=== PATIENT | female | born 1945 | race Caucasian/White ===

== ENCOUNTER 2024-04-17 17:25 | Inpatient (IN) | payer MEDICARE, SELFPAY ==
[2024-04-17] VITALS (14 sets, daily range): BP systolic 130–160; BP diastolic 67–93; PULSE 69–101; RESP 16–26; TEMP 36.6–36.9; O2SAT 92–99; BMI 34.2; BMI 33.4
--- NOTE | 2024-04-17 17:35 | EDS_ITS ---
HPI History of Present Illness Chief Complaint: Shortness of Breath PFSH PFSH Medical History Cancer Smoker COPD (chronic obstructive pulmonary disease) Allergy/AdvReac Type Severity Reaction Status Date / Time Sulfa (Sulfonamide Allergy Unknown PT UNSURE Verified 04/17/24 17:34 Antibiotics) OF REACTION varenicline (From Chantix) AdvReac Severe SUICIDAL Verified 04/17/24 17:35 IDEATION Social History Smoking Status: Current every day smoker tobacco type: cigarettes EXAM Physical Exam Const Vital Signs: 04/17/24 17:25 04/17/24 17:29 04/17/24 17:32 Temperature 98.5 F 98.5 F Temperature Source Oral Oral Pulse Rate 101 H 98 Respiratory Rate 26 H 22 H Respiratory Effort Short of Breath Respiratory Pattern Tachypnea Blood Pressure 145/93 H 144/93 H Blood Pressure Mean 110 110 Pulse Ox 98 97 Oxygen Delivery Method Nasal Cannula Nasal Cannula Nasal Cannula Oxygen Flow Rate (L/min) 6 2 2 04/17/24 17:55 04/17/24 18:01 04/17/24 18:29 Temperature 98 F Temperature Source Oral Pulse Rate 89 84 Respiratory Rate 16 23 H Respiratory Effort Respiratory Pattern Normal Blood Pressure 130/77 H Blood Pressure Mean 94 Pulse Ox 95 Oxygen Delivery Method Nasal Cannula Nasal Cannula Oxygen Flow Rate (L/min) 2 04/17/24 18:34 04/17/24 18:49 04/17/24 19:00 Temperature Temperature Source Pulse Rate 85 92 85 Respiratory Rate 25 H 17 26 H Respiratory Effort Respiratory Pattern Blood Pressure 130/77 H Blood Pressure Mean 88 Pulse Ox 92 94 94 Oxygen Delivery Method Oxygen Flow Rate (L/min) 04/17/24 20:00 04/17/24 21:00 04/17/24 22:00 Temperature Temperature Source Pulse Rate 87 87 86 Respiratory Rate 25 H 20 H 22 H Respiratory Effort Respiratory Pattern Blood Pressure 155/83 H 160/86 H 160/86 H Blood Pressure Mean 105 110 110 Pulse Ox 93 93 95 Oxygen Delivery Method Nasal Cannula Oxygen Flow Rate (L/min) 2 MDM MDM MDM Narrative Medical decision making narrative: HISTORY OF PRESENT ILLNESS: 78-year-old female presents concern for increased shortness of breath. Notes began 5 hours ago. Per this patient 70% percent on room air. They note the patient wears 4 L of oxygen at night. History of COPD, metastatic lung cancer. The patient further states she has had increasing shortness of breath today. Denies chest pain. Denies bleeding diathesis. Denies history of blood clots. She is not on chemotherapy REVIEW OF SYSTEMS: Pertinent positives: Shortness of breath Pertinent negatives: Chest pain PHYSICAL EXAM: Nursing triage notes reviewed, Vital signs reviewed Constitutional: please see mdm HENT: MMM Eyes: Pupils equal round and reactive to light, Extraocular muscles intact Neck: No stridor, no JVD, full neck ROM Lungs: No focal lung findings. No increased work of breathing, no conversational dyspnea, no accessory muscle use, no nasal flaring. No respiratory distress noted Heart: Regular rate and rhythm, No murmurs, No rubs and No gallops, 2+ distal pulses (radial, femoral, posterior tibial) in all extremities Abdomen: Soft, there is no tenderness, rigidity, rebound or guarding, no obvious peritoneal signs, no palpable pulsatile abdominal masses, no auscultated abdominal bruit : No CVAT Extremities: No edema Neuro: No new focal neurological deficits, cranial nerves II through XII intact, 5/5 strength in all present extremities. Intact sensation to light touch in all present extremities, 2+ reflexes bilateral patella tendons. Skin: No rash or lesions noted MEDICAL DECISION MAKING: Chief Complaint: Shortness of breath External records reviewed: Reviewed prior cardiovascular testing Factors affecting care: As per HPI Social determinants of health: none History obtained from others: Family Consults: Internal medicine (Dr. Carlisle) [facility] Narrative: The patient was initially hypoxic cardiovascular here in the ED saturating at 97% on 2 L by nasal cannula, tachypneic to 22 otherwise afebrile with a normal heart rate. Exam overall unremarkable patient saturating well on 2 L nasal cannula. I considered the following differential diagnosis: Pneumonia, COVID, flu, CHF ALL IMAGES (IF OBTAINED) HAVE BEEN PERSONALLY REVIEWED AND INTERPRETED BY MYSELF. EKG with normal sinus rhythm rate of 95, left ax deviation, normal intervals CBC with mild leukocytosis suggestive of systemic inflammation, no anemia or thrombocytopenia BMP without evidence of significant electrolyte abnormalities, no anion gap, no acute kidney injury. Initial troponin indeterminate will send repeat testing Second troponin stable will send third COVID flu RSV negative CT of the chest shows no evidence of PE or PNA but shows known pulmonary nodule History and clinical exam most consistent with COPD exacerbation. While attempting to ambulate the patient became very tachypneic and hypoxic 87% despite being on home oxygen. The synthesis of the patient's history, physical exam, labs, and images suggest likely COPD exacerbation. Discussed with patient, family and hospitalist. They agree the patient is appropriate for admission for COPD exacerbation. The patient and/or family, caregivers express understanding. The patient and/or family, caregivers agrees with the plan. Shared decision making: I will have a discussion with the patient and or visitors regarding risk/benefits of further testing or admission. They will be made aware of of the risk/benefits inherent in this decision they will be given the opportunity to voice understanding. Total critical care time today provided was at least 0 minutes. This excludes separately billable procedures. Critical care time (if documented) is secondary to the patient having high probability of clinically significant/life threatening deterioration in the patient's condition which required my urgent intervention. Impression: 1. Dyspnea 2. Lung nodule 3. COPD exacerbation 4. Hypoxia Dispo: Admit This note was generated with [employer] dictation software. It may contain incorrect words, spelling, and punctuation that were not noted in review of the chart prior to signing. Lab Data Labs: Laboratory Results - last 24 hr 04/17/24 04/17/24 18:14 20:56 WBC 11.3 H RBC 4.45 Hgb 13.8 Hct 41.3 MCV 92.8 MCH 31.0 MCHC 33.4 RDW Std Deviation 44.5 H RDW Coeff of Ayad 13.1 Plt Count 279 MPV 9.8 Immature Gran % (Auto) 0.900 Neut % (Auto) 80.4 H Lymph % (Auto) 11.5 L Haines % (Auto) 6.3 Eos % (Auto) 0.5 Baso % (Auto) 0.4 Absolute Neuts (auto) 9.0 H Absolute Lymphs (auto) 1.29 Nucleated RBC % 0 Sodium 136 Potassium 4.8 Chloride 98 Carbon Dioxide 25.5 Anion Gap 12 BUN 10 Creatinine 0.94 Estim Creat Clear Calc 52.85 Est GFR (MDRD) Non-Af 62 BUN/Creatinine Ratio 10.4 Glucose 107 H Calcium 8.9 Troponin T High Sens 37 H Troponin T Hi Sens 2 Hr 37 H Radiography Diagnostic Testing: Clinical Impression(s) from Imaging Studies Chest CTA 04/17/24 19:10 IMPRESSION: 1. No evidence of pulmonary embolism. 2. 25 mm right upper lobe pulmonary nodule, concerning for primary lung malignancy. 3. Severe upper lobe predominant emphysema. 4. Multiple enlarged predominantly right-sided hilar and mediastinal lymph nodes, concerning for metastasis. 5. Hepatic cirrhosis without visualized focal lesion. Recommend PET-CT or tissue sampling to evaluate the right upper lobe pulmonary nodule. One or more dose reduction techniques were used (e.g., Automated exposure control, adjustment of the mA and/or kV according to patient size, use of iterative reconstruction technique). [facility] Discharge Plan Triage Chief Complaint: Shortness of Breath ED Provider: Сергей Evans Dx/Rx/DC Orders Primary Care Provider: Care Physician,No Primary Referrals: NOT,DEFINED [Non-Staff] - Print Language: Bruneian
--- NOTE | 2024-04-17 17:55 | EKG12_ITS ---
Test Reason : SOB Blood Pressure : */* mmHG Vent. Rate : 95 BPM Atrial Rate : 95 BPM P-R Int : 176 ms QRS Dur : 68 ms QT Int : 350 ms P-R-T Axes : 63 -19 56 degrees QTcB Int : 439 ms Normal sinus rhythm Possible Inferior infarct , age undetermined Abnormal ECG Confirmed by SHANTELLE PAREDES, GALILEO ([id number]), manuscript editor ADITYA SOLOMON ([id number]) on 04/21/2024 10:49:21 AM Referred By: Confirmed By: GALILEO PEPPER MD
[2024-04-17] MEDS: Ipratropium/Albuterol Sulfate 3 ML AMPUL.NEB INHALATION (18:01)
[2024-04-17] MEDS: MethylPREDNISolone 125 MG/2 ML Vial IV (18:19)
[2024-04-17 18:28] LABS: Absolute Lymphocyte Count 1.29 X10^3/uL (0.83-4.51); Basophil# 0.05 X10^3/uL; Basophil% 0.4 % (0-1); Eosinophil# 0.06 X10^3/uL; Eosinophils% 0.5 % (0-5); Hematocrit 41.3 % (37-47); Hemoglobin 13.8 g/dL (12.0-15.0); Lymphocyte # 1.29 X10^3/ul (0.83-4.51); Lymphocyte % 11.5 % (19-41); Mean Corp Hgb Conc 33.4 g/dL (32-36); Mean Corpuscular Volume 92.8 fL (81-99); Mean Platelet Vol. 9.8 fl (6.2-12.0); Monocyte# 0.71 X10^3/uL; Monocyte% 6.3 % (0-10); NRBC Flagged by Analyzer 0 % (0-5); Neutrophil # 9.04 X10^3/uL (2.7-7.7); Neutrophil % 80.4 % (47-70); Platelet Count 279 K/mm3 (150-450); RBC Distribution Width CV 13.1 % (11.6-14.6); RBC Distribution Width SD 44.5 fl (35.1-43.9); Red Blood Count 4.45 M/mm3 (4.2-5.4); White Blood Count 11.3 K/mm3 (4.4-11.0)
--- NOTE | 2024-04-17 18:59 | ED.RN ---
pt's colostomy appliance was leaking all around the device. this rn and another rn clean patient up and remove old appliance. new appliance applied with hospital supplied ostomy bags and wafers. pt tolerated well.
[2024-04-17 19:00] LABS: Anion Gap 12 (5-15); BUN 10 mg/dL (4-19); BUN/Creat Ratio 10.4 RATIO (10-20); Calcium,Total 8.9 mg/dL (7.6-11.0); Carbon Dioxide 25.5 mmol/L (21.0-32.0); Chloride 98 mmol/L (98-108); Creatinine, Serum 0.94 mg/dL (0.70-1.20); EST Glomerular Filtration Rate 62 (>60); Estimated Creatinine Clearance 52.85 ml/min (50-250); Glucose 107 mg/dL (70-99); Potassium 4.8 mmol/L (3.3-5.1); Sodium Level 136 mmol/L (133-145)
--- NOTE | 2024-04-17 19:10 | CT_ITS ---
PROCEDURE: CTA CHEST W/WO CONTRAST REASON FOR EXAM: SOB, HX OF CANCER R/O PE TECHNIQUE: CTA imaging of the chest with intravenous contrast. 3D reconstructions. CONTRAST: COMPARISON: None. FINDINGS: Hardware: None. Lymph nodes: Multiple enlarged hilar and mediastinal lymph nodes. For example 15 mm right upper paratracheal node (series 3, image 179); 24 mm right lower paratracheal node and 32 mm right hilar node (image 131). Multiple other mildly enlarged lymph nodes are noted. Heart: Normal heart size. No pericardial effusion. Mild atherosclerotic calcification of the coronary arteries. RV/LV Diameter Ratio: N/A Thoracic Aorta: No thoracic aortic aneurysm or dissection. Mild atherosclerotic calcification of the thoracic aorta. Pulmonary Vessels: No evidence of acute pulmonary emboli through the major subsegmental branches. Most Proximal Level of Embolus (if embolus present): N/A Lungs and Airways: Central airways are patent without endobronchial lesions. Moderate upper lobe predominant centrilobular emphysema. 25 mm right upper lobe pulmonary nodule (series 2, image 145). No pneumothorax. No pleural effusion. Pleura: No pleural effusion. No pneumothorax. Upper Abdomen: Cirrhotic hepatic morphology. Moderate pneumobilia. Bones: Bone windows are unremarkable. Mild degenerative change of the thoracic spine. CT/CTA Chest W/WO Contrast IMPRESSION: 1. No evidence of pulmonary embolism. 2. 25 mm right upper lobe pulmonary nodule, concerning for primary lung maligna ncy. 3. Severe upper lobe predominant emphysema. 4. Multiple enlarged predominantly right-sided hilar and mediastinal lymph node s, concerning for metastasis. 5. Hepatic cirrhosis without visualized focal lesion. Recommend PET-CT or tissue sampling to evaluate the right upper lobe pulmonary nodule. One or more dose reduction techniques were used (e.g., Automated exposure contr ol, adjustment of the mA and/or kV according to patient size, use of iterative reconstruction technique). Reading Location: [facility]
[2024-04-17 19:16] LABS: Troponin T High Sensitivity 37 ng/L (<=14)
--- NOTE | 2024-04-17 20:55 | CM.ED ---
Social Work Reason for visit: No PCP SW introduced self and reason for visit. Patient stated that she does have a primary DEDENTER that she routinely sees, no resources necessary. No further needs identified. Rosalie Neal, HEARING AID ASSEMBLY SUPERVISOR, E COMMERCE DIRECTOR
[2024-04-17 21:35] LABS: Troponin T High Sens 2 HR 37 ng/L (<=14)
[2024-04-17] MEDS: HYDROcodone Bitartrate/Apap 5/325 Tablet PO (21:46)
[2024-04-17] MEDS: Ondansetron 4 MG/2 ML Vial IV (21:46)
--- NOTE | 2024-04-17 22:24 | HP.PCM.HOS_ITS ---
[facility] - General General Date of Admission: 04/17/24 Date of Service: 04/17/24 Chief Complaint: SOB and Wheezing. HPI Narrative SIXTO SMITH, is a 78 F with a past medical history of tobacco abuse; with subsequent COPD, chronic hypoxic respiratory failure on 4L NC nocturnal, known history of lung cancer; followed by oncology but not on chemotherapy and obesity; with BMI of 34.2 this admission who presents to [facility] ER complaining of SOB and wheezing. Ms. Arriola reports her symptoms began approximately 5 hours prior to arrival with the abrupt-onset of shortness of breath at rest. Patient checked her pulse oximeter which revealed oxygen saturation of 70% on RA. Patient states her symptoms are ominously similar to her previous COPD exacerbations. She also admits to generalized weakness most pronounced in her legs with patient having ambulatory dysfunction so her daughter had her brought in for further evaluation and treatment. There is no report of fever, chills, nausea, vomiting, diarrhea, constipation, abdominal pain, chest pain or headache. In the ER she was diagnosed with AE COPD complicated by clinical evidence of [id number] Hypoxic Respiratory Insufficiency compounded by CTA of the chest done in the ER which revealed no evidence of pulmonary embolism but did show ~25 mm Right upper lobe pulmonary nodule concerning for primary lung malignancy with severe upper lobe predominant emphysema and multiple enlarged predominantly Right-sided hilar and mediastinal lymph nodes concerning for metastases in addition to hepatic cirrhosis without visualized focal lesion a long with Generalized Weakness and Ambulatory Dysfunction with patient's daughter reluctant to take her home and requesting ER physician seek admission for further treatment and evaluation. She was then admitted to the general medical floor for ongoing care for a stay that is expected to extend beyond 2 midnights. [facility] Medical History Cancer Smoker COPD (chronic obstructive pulmonary disease) Home Medications ?Medication ?Instructions ?Recorded ?Last Taken ?Type albuterol sulfate 90 mcg/actuation 2 puff inhalation Q 4H PRN PRN sob 04/17/24 Unknown History aerosol inhaler aspirin 81 mg tablet,delayed 81 mg PO DAILY 04/17/24 U nknown History release (Adult Aspirin Regimen) atorvastatin 10 mg tablet 10 mg PO DAILY 04/17/24 Unkn own History calcium phosphate,dibasic 77 1 tab PO DAILY 04/17/24 U nknown History mg-vitamin D3 400 unit tablet cetirizine 10 mg tablet 10 mg PO DAILY 04/17/24 Unkn own History cyanocobalamin (vitamin B-12) 500 500 mcg PO QDAY 04/05 04/29 Unknown History mcg tablet (B-12 DOTS) docusate sodium 100 mg capsule 100 mg PO BID 04/17/24 Unknown History (Colace) furosemide 20 mg tablet 20 mg PO DAILY 04/17/24 Unkn own History gabapentin 600 mg tablet 600 mg PO TID 04/17/24 Unkno wn History glycopyrrolate 9 mcg-formoterol 2 puff inhalation BID 04/17/24 Unknown History 4.8 mcg HFA aerosol inhaler (Bevespi Aerosphere) hydrocodone-acetaminophen 5-325mg 1 tab PO Q8H PRN PRN pain 04/17/24 Unknown History 5mg-325mg levothyroxine 125 mcg tablet 125 mcg PO DAILY 04/17/24 Unknown History pantoprazole 40 mg tablet,delayed 40 mg PO DAILY 04/17 Unknown History release paroxetine HCl 30 mg tablet 30 mg PO DAILY 04/17/24 Un known History polysaccharide iron complex 150 mg 150 mg PO DAILY Unknown History iron capsule (Ferrex) potassium chloride 20 mEq 20 meq PO BID 04/17/24 Unkno wn History tablet,extended release(part/cryst) sennosides 8.6 mg tablet (Natural 8.6 mg PO DAILY 04/05 04/29 Unknown History Senna Laxative) thiamine HCl (vitamin B1) 100 mg 100 mg PO DAILY 04/17 Unknown History tablet (Vitamin B-1) tizanidine 2 mg tablet 2 mg PO BID 04/17/24 Unknown History Allergy/AdvReac Type Severity Reaction Status Date / Time Sulfa (Sulfonamide Allergy Unknown PT UNSURE Verified 04/17/24 17:34 Antibiotics) OF REACTION varenicline (From Chantix) AdvReac Severe SUICIDAL Verified 04/17/24 17:35 IDEATION Social History Smoking Status: Current every day smoker tobacco type: cigarettes ROS ROS Narrative Review of Systems: Constitutional: Patient denies fever or chills. Eyes: Patient denies changes in vision or discharge from eyes. ENT: Patient denies runny nose, sore throat or ear pain. Resp: Patient admits to worsening SOB and wheezing as per HPI. CV: Patient denies chest pain, palpitations, heart racing or LE edema. GI: Patient denies abdominal pain, nausea, vomiting, diarrhea or constipation. : Patient denies dysuria, hematuria or urinary frequency. MSK: Patient admits to generalized weakness with difficult ambulation as per HPI. Skin: Patient denies rash, abscess, wounds or jaundice. Psych: Patient denies symptoms of uncontrolled depression or anxiety. Allergy: Patient denies lip swelling, tongue swelling or urticaria. Hematology: Patient denies easy bleeding or easy bruisability. Endocrinology: Patient denies polyuria, polydipsia, polyphagia or cold/heat intolerance. 14 point ROS otherwise negative except for positives noted above in HPI. Vital Signs Vital Signs Vital Signs: 04/17/24 17:25 04/17/24 17:29 04/17/24 17:32 Temperature 98.5 F 98.5 F Temperature Source Oral Oral Pulse Rate 101 H 98 Respiratory Rate 26 H 22 H Respiratory Effort Short of Breath Respiratory Pattern Tachypnea Blood Pressure 145/93 H 144/93 H Blood Pressure Mean 110 110 Pulse Ox 98 97 Oxygen Delivery Method Nasal Cannula Nasal Cannula Nasal Cannula Oxygen Flow Rate (L/min) 6 2 2 04/17/24 17:55 04/17/24 18:01 04/17/24 18:29 Temperature 98 F Temperature Source Oral Pulse Rate 89 84 Respiratory Rate 16 23 H Respiratory Effort Respiratory Pattern Normal Blood Pressure 130/77 H Blood Pressure Mean 94 Pulse Ox 95 Oxygen Delivery Method Nasal Cannula Nasal Cannula Oxygen Flow Rate (L/min) 2 04/17/24 18:34 04/17/24 18:49 04/17/24 19:00 Temperature Temperature Source Pulse Rate 85 92 85 Respiratory Rate 25 H 17 26 H Respiratory Effort Respiratory Pattern Blood Pressure 130/77 H Blood Pressure Mean 88 Pulse Ox 92 94 94 Oxygen Delivery Method Oxygen Flow Rate (L/min) 04/17/24 20:00 04/17/24 21:00 04/17/24 22:00 Temperature Temperature Source Pulse Rate 87 87 86 Respiratory Rate 25 H 20 H 22 H Respiratory Effort Respiratory Pattern Blood Pressure 155/83 H 160/86 H 160/86 H Blood Pressure Mean 105 110 110 Pulse Ox 93 93 95 Oxygen Delivery Method Nasal Cannula Oxygen Flow Rate (L/min) 2 Weight Weight: 199 lb 4.766 oz Body Mass Index (BMI) 34.2 Physical Exam Const alert, oriented x3 and average body habitus Constitutional Narrative: Mild distress noted with patient appearing chronically ill. General Appearance: cooperative HEENT normocephalic, head/scalp atraumatic, hearing grossly normal bilaterally and moist oral mucous membranes Eyes PERRL and EOMs intact bilaterally Neck no lymphadenopathy, supple and no JVD Resp Resp Narrative: Diminished throughout with scattered faint expiratory wheezes. Auscultation: wheezes Cardio regular rate and regular rhythm GI normal to inspection, nondistended, normoactive bowel sounds, soft to palpation, non-tender and non-distended Extremity normal to inspection, full ROM and no clubbing, cyanosis or edema Skin Skin Narrative: Patient has no evidence of rash, abscess, wounds or jaundice. Neuro oriented x3, CN's II-XII intact bilaterally, moves all extremities and no focal motor deficits Sensorium / Orientation: awake, alert, oriented to person, oriented to place and oriented to time Speech: speech normal Psych affect normal Results Medical Records Data Attestation: I reviewed the patient's medical records Lab / Micro Data Attestation: I reviewed the patient's lab results. 04/17/24 18:14 04/17/24 18:14 Labs: Laboratory Results - last 24 hr 04/17/24 18:14: WBC 11.3 H, RBC 4.45, Hgb 13.8, Hct 41.3, MCV 92.8, MCH 31.0, MCHC 33.4, RDW Std Deviation 44.5 H, RDW Coeff of Ayad 13.1, Plt Count 279, MPV 9.8, Immature Gran % (Auto) 0.900, Neut % (Auto) 80.4 H, Lymph % (Auto) 11.5 L, [place] % (Auto) 6.3, Eos % (Auto) 0.5, Baso % (Auto) 0.4, Absolute Neuts (auto) 9.0 H, Absolute Lymphs (auto) 1.29, Nucleated RBC % 0, Sodium 136, Potassium 4.8, Chloride 98, Carbon Dioxide 25.5, Anion Gap 12, BUN 10, Creatinine 0.94, Estim Creat Clear Calc 52.85, Est GFR (MDRD) Non-Af 62, BUN/Creatinine Ratio 10.4, Glucose 107 H, Calcium 8.9, Troponin T High Sens 37 H 04/17/24 20:56: Troponin T Hi Sens 2 Hr 37 H Micro: Microbiology 04/17/24 18:14 Mucosa - Nose SARS-CoV-2, Influenza & RSV (PCR) - Final Imaging Radiology Impression Chest CTA 04/17/24 19:10 IMPRESSION: 1. No evidence of pulmonary embolism. 2. 25 mm right upper lobe pulmonary nodule, concerning for primary lung malignancy. 3. Severe upper lobe predominant emphysema. 4. Multiple enlarged predominantly right-sided hilar and mediastinal lymph nodes, concerning for metastasis. 5. Hepatic cirrhosis without visualized focal lesion. Recommend PET-CT or tissue sampling to evaluate the right upper lobe pulmonary nodule. One or more dose reduction techniques were used (e.g., Automated exposure control, adjustment of the mA and/or kV according to patient size, use of iterative reconstruction technique). Reading [facility] Assessment & Plan Assessment/Plan (1) COPD with exacerbation: (2) Leukocytosis: QUALIFIERS: Leukocytosis type: unspecified Qualified Code(s): D 72.829 - Elevated white blood cell count, unspecified (3) Respiratory insufficiency: (4) D-dimer, elevated: (5) Tobacco abuse: (6) Lung cancer, primary, with metastasis from lung to other site: QUALIFIERS: Laterality: right Qualified Code(s): C34.91 - Malignant neoplasm of unspecified part of right bronchus or lung (7) Generalized weakness: (8) Ambulatory dysfunction: (9) Obesity (BMI 30.0-34.9): (10) Hepatic cirrhosis: QUALIFIERS: Ascites presence: without ascites Hepatic cirrhosis type: unspecified hepatic cirrhosis Qualified Code(s): K74.60 - Unspecified cirrhosis of liver PLAN: Plan 1. AE COPD with Leukocytosis of 11.3K present on admission - Admit to general medical floor. Continue IV Solu-Medrol and IV doxycycline begun in the ER. Resume as needed scheduled nebulizer treatments. 2. Vyjfa-us-Mcxoezs Respiratory insufficiency due to #1 with elevated D-dimer of 2.36 present on admission- Wean supplemental oxygen as tolerated. CTA of chest negative for PE but we will evaluate for DVT with lower extremity Doppler in a.m. due to increased risk of paraneoplastic VTE. 3. History of chronic tobacco abuse with subsequent Lung Cancer and CT evidence of Metastases followed by oncology but not yet started on chemotherapy complicating #1 & #2 - Noted. Patient likely will not tolerate chemotherapy very well given her advanced age and brittle condition. 4. Generalized Weakness with Ambulatory Dysfunction attributable to #1 - #3 - PT/OT and Case Management to consult and treat on rounds in the AM for further recommendations with help appreciated in advance. 5. Obesity; with BMI of 34.2 this admission adding to the burden of disease outlined from #1 - #4 - Weight loss will be recommended. Check TSH. This complicates her case and may hamper recovery. 6. CT evidence this admission for Hepatic Cirrhosis likely due to SCHULZ with no report history of alcohol abuse - Noted. 7. DVT/GI prophylaxis - Lovenox 40 mg sq daily plus SCD's. Pantoprazole 40 mg PO daily. Total time: Approximately (but not less than) 75 minutes. Charges/Coding Visit Charges Inpatient E&M: 50835 Init Hosp L3
[2024-04-17] MEDS: Doxycycline 100 MG in 0.9% Normal Saline (250mL Bag) 250 ML 250 MG IV (23:16)
[2024-04-17 23:32] LABS: D-Dimer Quantitative (DVT/PE) 2.36 FEU/ug/m (0.27-0.49)
[2024-04-17 23:41] LABS: Troponin T High Sens 4 HR 38 ng/L (<=14)
[2024-04-18] VITALS (13 sets, daily range): BP systolic 140–155; BP diastolic 76–89; PULSE 64–89; RESP 20; TEMP 36–36.6; O2SAT 95–99; BMI 33.3
[2024-04-18 00:20] LABS: Magnesium 2.2 mg/dL (1.5-2.2)
[2024-04-18] MEDS: 0.9% Normal Saline (1000mL) 1,000 ML 70 ML IV (00:29)
[2024-04-18 00:57] LABS: Vitamin B12 1909 pg/mL (180-914)
--- NOTE | 2024-04-18 02:00 | VDLE_ITS ---
Reason For Study Reason For Study: elevated D-Dimer RIGHT LEFT GSV is normal. GSV is normal. CFV is compressible, spontaneous, phasic, competent CFV is compressible, spontaneous, phasic, competent, and demonstrates normal augmentation. and demonstrates normal augmentation. FV is compressible, spontaneous, phasic, competent FV is compressible, spontaneous, phasic, competent and demonstrates normal augmentation. and demonstrates normal augmentation. POP V is compressible, spontaneous, phasic, competent POP V is compressible, spontaneous, phasic, competent and demonstrates normal augmentation. and demonstrates normal augmentation. T/P Trunk is compressible. T/P Trunk is compressible. PTV is compressible. PTV is compressible. RT PerV is compressible. LT PerV is compressible. Procedure This is a venous duplex using B-mode, color flow and spectral Doppler. Exam performed portable in patient room. The study was technically difficult. Due to patient unable to tolerate probe pressure. A preliminary report was called and/or faxed to [place]. VL/Venous Duplex US - Chriss Extrem Interpretation Summary Deep veins of the lower extremities are bilaterally patent and compressible seg mentally. There is no evidence of deep vein thrombosis on either side. Valvular competence appears intact within the p roximal deep venous systems bilaterally. The great saphenous veins appear bilaterally patent and compressible segmentall y. Ordering Physician: Jairo Bai Referring Physician: JANIE PCP Performed By: Jazzy Sellers, NASRA, RVT
[2024-04-18 06:23] LABS: Absolute Lymphocyte Count 0.87 X10^3/uL (0.83-4.51); Absolute Neutrophil Count 8.6 X10^3/uL (2.0-7.7); Basophil# 0.02 X10^3/uL; Basophil% 0.2 % (0-1); Eosinophil# 0.03 X10^3/uL; Eosinophils% 0.3 % (0-5); Hemoglobin 13.3 g/dL (12.0-15.0); Lymphocyte # 0.87 X10^3/ul (0.83-4.51); Lymphocyte % 8.6 % (19-41); Mean Corp Hgb Conc 32.4 g/dL (32-36); Mean Corpuscular Volume 95.6 fL (81-99); Mean Platelet Vol. 10.9 fl (6.2-12.0); NRBC Flagged by Analyzer 0 % (0-5); Neutrophil # 8.59 X10^3/uL (2.7-7.7); Neutrophil % 85.1 % (47-70); POSITIVE COUNT YES; RBC Distribution Width CV 13.1 % (11.6-14.6); RBC Distribution Width SD 45.8 fl (35.1-43.9); Red Blood Count 4.29 M/mm3 (4.2-5.4); White Blood Count 10.1 K/mm3 (4.4-11.0)
[2024-04-18] MEDS: Ondansetron 4 MG/2 ML Vial IV ×2 (06:40→14:19)
[2024-04-18 06:47] LABS: Bacteria 0 SEEN /hpf (None Seen); Mucous, Urine 0 SEEN /hpf (<or=2+)
[2024-04-18 06:58] LABS: Color, Urine Yellow (Yellow); Glucose, Dipstick Normal (Normal); Ketone-Dipstick Negative (Negative); Leukocyte Esterase-Dipstick Negative /ul (Negative); Nitrite-Dipstick Negative (Negative); Occult Blood-Urine Negative /ul (Negative); Protein-Dipstick 30 mg/dl (Negative); Specific Gravity, Urine 1.015 (1.002-1.030); Urine Bilirubin Dipstick Negative (Negative); Urine Clarity Clear (Clear); Urine Urobilinogen Normal (Normal)
[2024-04-18 07:16] LABS: Differential Indicated SCAN CRITERIA MET
[2024-04-18 07:31] LABS: Red Blood Cells-Urine 0 SEEN /hpf (0-5); White Blood Cells 0-5 SEEN /hpf (0-5)
[2024-04-18 07:32] LABS: Squamous Epithelial Cells - UA 0-5 SEEN /hpf (5-10)
[2024-04-18 07:39] LABS: Differential Comment SCANNED; Platelet Estimate ADEQUATE (ADEQ)
[2024-04-18 08:41] LABS: Phosphorus 4.3 mg/dL (2.7-4.5)
[2024-04-18 09:22] LABS: ALB/GLOB Ratio 1.3 RATIO (0.9-2.4); AST(SGOT) 115 U/L (<=31); Alanine Aminotransfer ALT/SGPT 112 U/L (<=34); Albumin, Serum 3.6 g/dL (3.4-4.8); Alkaline Phosphatase 153 U/L (35-104); Anion Gap 14 (5-15); BUN 14 mg/dL (4-19); BUN/Creat Ratio 14.9 RATIO (10-20); Calcium,Total 8.5 mg/dL (7.6-11.0); Carbon Dioxide 21.6 mmol/L (21.0-32.0); Chloride 99 mmol/L (98-108); Creatinine, Serum 0.91 mg/dL (0.70-1.20); EST Glomerular Filtration Rate 64 (>60); Estimated Creatinine Clearance 53.99 ml/min (50-250); Globulin 2.8 g/dL (2.2-4.2); Glucose 121 mg/dL (70-99); Potassium 5.1 mmol/L (3.3-5.1); Protein, Total 6.4 g/dL (5.9-8.4); Sodium Level 134 mmol/L (133-145); Total Bilirubin 0.34 mg/dL (0.00-1.30)
[2024-04-18] MEDS: proCHLORPERazine 10 MG/2 ML Vial 5 MG IV ×2 (09:56→20:03)
[2024-04-18] MEDS: Doxycycline 100 MG in 0.9% Normal Saline (250mL Bag) 250 ML 250 MG IV ×2 (09:56→21:45)
[2024-04-18] MEDS: Enoxaparin 40 MG/0.4 ML Syringe SC (10:00)
[2024-04-18] MEDS: Pantoprazole Sodium 40 MG Tablet PO (10:00)
[2024-04-18] MEDS: MethylPREDNISolone 125 MG/2 ML Vial 60 MG IV ×2 (10:02→21:17)
[2024-04-18] MEDS: Nystatin Powder 15gm Bottle 1 APPLIC TOPICAL ×2 (10:04→21:13)
--- NOTE | 2024-04-18 10:22 | PN_ITS ---
Subjective Subjective Patient seen and examined. She said she felt her breathing was improving. She is on 2 L of oxygen. She admits to some wheezing and is also coughing. Review of symptoms otherwise negative. Patient continues to smoke and says she smokes about 1 pack daily. Objective Data Objective Data Vital Signs: Vital Signs Temp Pulse Resp BP Pulse Ox O2 Del Method O2 Flow Rate 97.5 F L 67 20 H 151/76 H 97 Nasal Cannula 2 04/18/24 08:27 04/18/24 08:27 04/18/24 08:27 04/18/24 08:27 04/18/24 08:27 04/18/24 09:03 04/18/24 09:03 Oxygen Flow Rate (L/min) 2 Oxygen Delivery Method Nasal Cannula Weight: 195 lb 1.745 oz Body Mass Index (BMI) 33.3 Intake & Output: Intake and Output for Last 24 Hours 04/16/24 04/17/24 04/18/24 23:59 23:59 23:59 Intake Total 260 / 260 Output Total 250 / 250 Balance Lab / Micro Data 04/18/24 05:29 04/18/24 05:29 Labs: Laboratory Results - last 24 hr 04/17/24 18:14: WBC 11.3 H, RBC 4.45, Hgb 13.8, Hct 41.3, MCV 92.8, MCH 31.0, MCHC 33.4, RDW Std Deviation 44.5 H, RDW Coeff of Ayad 13.1, Plt Count 279, MPV 9.8, Immature Gran % (Auto) 0.900, Neut % (Auto) 80.4 H, Lymph % (Auto) 11.5 L, [place] % (Auto) 6.3, Eos % (Auto) 0.5, Baso % (Auto) 0.4, Absolute Neuts (auto) 9.0 H, Absolute Lymphs (auto) 1.29, Nucleated RBC % 0, Sodium 136, Potassium 4.8, Chloride 98, Carbon Dioxide 25.5, Anion Gap 12, BUN 10, Creatinine 0.94, Estim Creat Clear Calc 52.85, Est GFR (MDRD) Non-Af 62, BUN/Creatinine Ratio 10.4, Glucose 107 H, Calcium 8.9, Troponin T High Sens 37 H 04/17/24 20:56: Troponin T Hi Sens 2 Hr 37 H 04/17/24 23:08: D-Dimer Quant (PE/DVT) 2.36 H*, Magnesium 2.2, Troponin T Hi Sens 4Hr 38 H, Vitamin B12 1909 H, Serum Folate 12.70, TSH 13.400 H 04/18/24 05:29: WBC 10.1, RBC 4.29, Hgb 13.3, Hct 41.0, MCV 95.6, MCH 31.0, MCHC 32.4, RDW Std Deviation 45.8 H, RDW Coeff of Ayad 13.1, Plt Count TNP, MPV 10.9, Immature Gran % (Auto) 0.800, Neut % (Auto) 85.1 H, Lymph % (Auto) 8.6 L, [place] % (Auto) 5.0, Eos % (Auto) 0.3, Baso % (Auto) 0.2, Absolute Neuts (auto) 8.6 H, Absolute Lymphs (auto) 0.87, Nucleated RBC % 0, Differential Comment SCANNED, Platelet Estimate ADEQUATE, Sodium 134, Potassium 5.1, Chloride 99, Carbon Dioxide 21.6, Anion Gap 14, BUN 14, Creatinine 0.91, Estim Creat Clear Calc 53.99, Est GFR (MDRD) Non-Af 64, BUN/Creatinine Ratio 14.9, Glucose 121 H, Calcium 8.5, Phosphorus 4.3, Total Bilirubin 0.34, AST 115 H, ALT 112 H, A lkaline Phosphatase 153 H, Total Protein 6.4, Albumin 3.6, Globulin 2.8, Albumin/Globulin Ratio 1.3 04/18/24 06:40: Urine Color Yellow, Urine Clarity Clear, Urine pH 6.0, Ur Specific [place] 1.015, Urine Protein 30 H, Urine Glucose (UA) Normal, Urine Ketones Negative, Urine Occult Blood Negative, Urine Nitrite Negative, Urine Bilirubin Negative, Urine Urobilinogen Normal, Ur Leukocyte Esterase Negative, Urine RBC 0 SEEN, Urine WBC 0-5 SEEN, Ur Squamous Epith Cells 0-5 SEEN, Urine Bacteria 0 SEEN, Urine Mucus 0 SEEN Micro: Microbiology 04/17/24 18:14 Mucosa - Nose SARS-CoV-2, Influenza & RSV (PCR) - Final Radiography Diagnostic Testing: Radiology Impression Chest CTA 04/17/24 19:10 IMPRESSION: 1. No evidence of pulmonary embolism. 2. 25 mm right upper lobe pulmonary nodule, concerning for primary lung malignancy. 3. Severe upper lobe predominant emphysema. 4. Multiple enlarged predominantly right-sided hilar and mediastinal lymph nodes, concerning for metastasis. 5. Hepatic cirrhosis without visualized focal lesion. Recommend PET-CT or tissue sampling to evaluate the right upper lobe pulmonary nodule. One or more dose reduction techniques were used (e.g., Automated exposure control, adjustment of the mA and/or kV according to patient size, use of iterative reconstruction technique). [facility] Physical Exam Const alert, oriented x3 and no apparent distress Constitutional Narrative: class II obesity General Appearance: cooperative HEENT normocephalic, head/scalp atraumatic, moist oral mucous membranes and oropharynx normal Eyes PERRL and EOMs intact bilaterally Neck no lymphadenopathy and supple Lymph Lymphatic: no lymphadenopathy noted and no lymphedema noted Resp Resp Narrative: diminished breath sounds bibasally, no wheezes or crackles. On 2L of oxygen by nasal canula Cardio regular rate, regular rhythm, S1 normal heart sound, S2 normal heart sound and no murmurs GI normal to inspection, nondistended, normoactive bowel sounds, soft to palpation, non-tender and non-distended Extremity normal capillary refill, no clubbing, cyanosis or edema and no calf tenderness General Extremity: no tenderness to palpation of joints or extremities Skin General Skin Exam: no breakdown Neuro CN's II-XII intact bilaterally, no focal motor deficits and no sensory deficits noted Motor Exam: strength 5/5 throughout and general weakness Psych thought process normal, cooperative and affect normal Appearance: appropriate Assessment & Plan Assessment/Plan (1) COPD with exacerbation: (2) Respiratory insufficiency: PLAN: Plan #HYpoxia due to acute exacerbation of COPD * Patient on 2 L of oxygen today. She usually wears 4 L at night at home. Was admitted with a complaint of shortness of breath of about 5 hours prior to admission. Saturating at 70% on room air at home. * CTA of the chest done in the ED showed 25 mm right upper lobe pulmonary nodule concerning for primary lung malignancy and severe upper lobe predominant emphysema and multiple enlarged predominantly right-sided hilar and mediastinal lymph nodes concerning for mets. Also showed evidence of hepatic cirrhosis. * Currently on IV Solu-Medrol. She continues to smoke and says she smokes about 1 pack daily. Patient counseled strongly to quit. * Breathing treatments with bronchodilators. Titrate oxygen to maintain saturation above 90%. * on IV doxycycline * #? bowel obstruction * Was informed by patient's nurse that patient's states he is concerned about bowel obstruction. Patient apparently started developing abdominal pain afterwards outpatient. She has not had any output in her colostomy bag also * Stat CT abdomen and pelvis with oral and IV contrast ordered showed no evidence of obstruction and showed constipation. CT abdomen and pelvis also showed large fatty liver with nodularity of hepatic surface nad ill defined hypodense lesion. * place on laxatives to help with constipation * hydrate gently with iVF * #Elevated D-dimer: D-dimer 2.[address] of the chest was however negative for any evidence of PE. #Debility and weakness: Also has ambulatory dysfunction. PT OT on board. Fall precautions. #History of lung cancer * CT chest as stated above showed 25mm right upper lobe pulmonary nodule and severe upper lobe emphysema * she has been diagnosed with lung cancer but is yet to start chemotherapy. * follow up with oncology on outpatient basis. * #Class II obesity: BMI is 33.5. Complicates acute care, expected recovery and prognosis #Liver cirrhosis: * as seen on CT chest. No history of alcohol abuse. * AST and ALT elevated at 115 and 112 respectively and ALP is also up at 153. * However, with her history of obesity, this may be due to SCHULZ. Will benefit from follow up with gastroenterology on outpatient basis. * CT of the abdomen showed large fatty liver with nodularity of hepatic surface and ill defined hypodense lesions, suggestive of cirrhosis, though metastasis cannot be excluded. Patient's daughter tells me they are aware of these findings already. To follow up with gastroenterology and oncology on outpatient basis. * #Hypothyroidism: * TSH is 13.4. Free T4 is also low at 0.5. * Patient on Synthroid 125 mcg daily. * Claims compliance. * Will increase dosing to 200 mcg daily. * Will benefit from follow-up with endocrinology on outpatient basis. * DVT prophylaxis: lovenox Charges/Coding Visit Charges Inpatient E&M: 35961 Subs Hosp L3
[2024-04-18 10:30] LABS: Free T3 0.9 pg/mL (2.18-3.98)
--- NOTE | 2024-04-18 11:03 | CASEMGMT ---
NEETU JORDAN Assessment: Face to Face with pt for initial transition planning/care coordination assessment. NEETU JORDAN introduced self and role at [facility], pt voices understanding and consents to assessment. Pt is A&O x4. Pt asks for dtr to answer questions as she and her father are in the room. Pt sitting up in bed with eyes closed, waiting for a CT scan. Care providers, pharmacy, and demographics verified/updated. Admitting Dx: AE COPD, resp insuff Strata Score: 2 PCP:Christine Figueredo Specialists:Yaakov Gillette, lily; Vern onc Preferred Pharmacy: [facility] Insurance: [facility] Prescription Benefit: yes LNOK: Amanda Andrade, dtr Living Arrangements: Pt lives with dtr in a ground level apt with no steps to enter. Pt dtr assists with bathing and dressing when she can. Pt is able to prepare simple meals. Dtr does laundry and gets groceries. Transportation: Pt does not drive. Pt dtr transports pt to medical appts. DME:Oxygen through [employer], portable concentrator in form, grab bars in bathroom, shower chair, walker HHC/SNF: Pt has had HHC in the past and been to a SNF in [place]. Pt dtr is a nurse who works nights. She and patient are interested in HHC for pt. They are very hesitant to discuss dc planning as pt is not ready for dc yet. They are agreeable to reviewing HHC list and are aware that should the dc plan change, we can change it without difficulty as course of hospitalization progresses. Pt dtr requesting private duty list. Pt dtr states that palliative care is coming out to the home next Sunday. Pt dtr states she can obtain a pox for pt. Pt and dtr state no further concerns/needs. CM to follow. Advised pt to ask CM if any further questions/concerns/needs arise, voices understanding. Pt Goal: Home with HHC Plan: Home with HHC pending course of hospitalization [place]DA CM Confirmed with [facility], they will see pt in home at 1pm on 04/23/24. Placed on dc instructions.
--- NOTE | 2024-04-18 11:42 | CASEMGMT ---
NEETU JORDAN into pt room, provided C list as well as private duty list. NEETU JORDAN to check back. Pt states she cannot look at this now. Family has left the room.
--- NOTE | 2024-04-18 13:05 | CT_ITS ---
EXAM: CT Abdomen and Pelvis With Intravenous Contrast CLINICAL INDICATION: BOWEL OBSTRUCTION, ABDOMINAL PAIN TECHNIQUE: Axial computed tomography images of the abdomen and pelvis with intravenous contrast. This CT exam was performed using one or more of the following dose reduction techniques: automated exposure control, adjustment of the mA and/or kV according to patient size, and/or use of iterative reconstruction technique. COMPARISON: No relevant prior studies available. FINDINGS: LUNG BASES: Unremarkable. No mass. No consolidation. ABDOMEN: LIVER: Large fatty liver with nodularity tissue hepatic surface and ill-defined hypodense lesions. Finding may suggest cirrhosis. Metastasis can not be excluded. GALLBLADDER AND BILE DUCTS: Central pneumobilia could be benign or secondary to infectious or inflammatory response. Clinical correlation is recommended. No calcified stones. No ductal dilation. PANCREAS: Unremarkable. No mass. No ductal dilation. SPLEEN: Unremarkable. No splenomegaly. ADRENALS: Unremarkable. No mass. KIDNEYS AND URETERS: Unremarkable. No solid mass. No hydronephrosis. STOMACH AND BOWEL: Constipation without bowel obstruction or pneumoperitoneum. Left lower abdomen ileostomy. No mucosal thickening. PELVIS: APPENDIX: No findings to suggest acute appendicitis. BLADDER: Unremarkable. No mass. REPRODUCTIVE: Unremarkable as visualized. ABDOMEN and PELVIS: INTRAPERITONEAL SPACE: See above. BONES/JOINTS: Grade 1 anterior spondylolisthesis of L4 over L5. Apparent lytic lesion at L5 vertebral body. Metastasis can not be excluded. No acute fracture. No dislocation. SOFT TISSUES: Unremarkable. VASCULATURE: Unremarkable. No abdominal aortic aneurysm. LYMPH NODES: Unremarkable. No enlarged lymph nodes. CT/Abdomen/Pelvis WITH Contrast IMPRESSION: 1. Large fatty liver with nodularity tissue hepatic surface and ill-defined hy podense lesions. Finding may suggest cirrhosis. Metastasis can not be excluded. 2. Constipation without bowel obstruction or pneumoperitoneum. 3. Grade 1 anterior spondylolisthesis of L4 over L5. Apparent lytic lesion at L5 vertebral body. Metastasis can not be excluded. 4. Central pneumobilia could be benign or secondary to infectious or inflammat ory response. Clinical correlation is recommended. Reading Location: [facility]
[2024-04-18] MEDS: 0.9% Saline Lock 10 ML Syringe IV ×3 (14:19→21:18)
[2024-04-18] MEDS: Lactobacillis Acidophilus 1 CAP PO ×2 (14:21→21:16)
[2024-04-18] MEDS: Gabapentin 600 MG Tablet PO ×2 (14:23→21:13)
[2024-04-18] MEDS: Docusate Sodium 100 MG Capsule PO (21:16)
[2024-04-18] MEDS: Atorvastatin Calcium 10 MG Tablet PO (21:16)
[2024-04-18] MEDS: Albuterol 2.5 MG/3 ML VIAL.NEB. INHALATION (21:33)
[2024-04-18] MEDS: tiZANidine HCl 2 MG Tablet PO (22:21)
[2024-04-19] VITALS (15 sets, daily range): BP systolic 119–151; BP diastolic 67–82; PULSE 58–81; RESP 20–24; TEMP 36.4–36.9; O2SAT 93–98; BMI 33.6
[2024-04-19] MEDS: Ondansetron 4 MG/2 ML Vial IV ×2 (04:33→17:26)
[2024-04-19] MEDS: 0.9% Saline Lock 10 ML Syringe IV ×5 (04:33→19:58)
[2024-04-19] MEDS: Albuterol 2.5 MG/3 ML VIAL.NEB. INHALATION ×3 (04:48→22:50)
[2024-04-19] MEDS: Gabapentin 600 MG Tablet PO ×3 (05:44→22:19)
[2024-04-19] MEDS: Levothyroxine 100 MCG Tablet 200 MCG PO (05:44)
[2024-04-19 07:17] LABS: Absolute Lymphocyte Count 0.94 X10^3/uL (0.83-4.51); Basophil# 0.01 X10^3/uL; Basophil% 0.1 % (0-1); Hematocrit 40.6 % (37-47); Hemoglobin 13.2 g/dL (12.0-15.0); Lymphocyte # 0.94 X10^3/ul (0.83-4.51); Mean Corp Hgb Conc 32.5 g/dL (32-36); Mean Corpuscular Hgb 31.1 pg (27.0-32.0); Mean Corpuscular Volume 95.5 fL (81-99); Mean Platelet Vol. 9.9 fl (6.2-12.0); Monocyte# 0.77 X10^3/uL; Monocyte% 6.5 % (0-10); NRBC Flagged by Analyzer 0 % (0-5); Neutrophil # 9.98 X10^3/uL (2.7-7.7); Neutrophil % 84.6 % (47-70); Platelet Count 264 K/mm3 (150-450); RBC Distribution Width CV 13.3 % (11.6-14.6); RBC Distribution Width SD 46.6 fl (35.1-43.9); Red Blood Count 4.25 M/mm3 (4.2-5.4); White Blood Count 11.8 K/mm3 (4.4-11.0)
[2024-04-19 08:41] LABS: Anion Gap 11 (5-15); BUN 21 mg/dL (4-19); BUN/Creat Ratio 22.9 RATIO (10-20); Calcium,Total 8.7 mg/dL (7.6-11.0); Carbon Dioxide 27.1 mmol/L (21.0-32.0); Chloride 99 mmol/L (98-108); Creatinine, Serum 0.91 mg/dL (0.70-1.20); EST Glomerular Filtration Rate 64 (>60); Estimated Creatinine Clearance 54.24 ml/min (50-250); Glucose 114 mg/dL (70-99); Potassium 4.8 mmol/L (3.3-5.1); Sodium Level 137 mmol/L (133-145)
[2024-04-19 09:20] LABS: AST(SGOT) 113 U/L (<=31); Alanine Aminotransfer ALT/SGPT 126 U/L (<=34); Albumin, Serum 3.8 g/dL (3.4-4.8); Alkaline Phosphatase 163 U/L (35-104); Bilirubin, Direct 0.26 mg/dL (0.00-0.30); Globulin 2.7 g/dL (2.2-4.2); Protein, Total 6.5 g/dL (5.9-8.4); Total Bilirubin 0.42 mg/dL (0.00-1.30)
[2024-04-19] MEDS: proCHLORPERazine 10 MG/2 ML Vial 5 MG IV ×2 (09:30→19:57)
[2024-04-19] MEDS: Aspirin E.C. 81 MG Tablet PO (09:41)
[2024-04-19] MEDS: Senna Tablet 1 TABLET PO (09:41)
[2024-04-19] MEDS: Pantoprazole Sodium 40 MG Tablet PO (09:41)
[2024-04-19] MEDS: Furosemide 20 MG Tablet PO (09:41)
[2024-04-19] MEDS: Potassium Chloride Oral Tablet 20 MEQ PO ×2 (09:41→17:21)
[2024-04-19] MEDS: Docusate Sodium 100 MG Capsule PO ×2 (09:41→22:16)
[2024-04-19] MEDS: tiZANidine HCl 2 MG Tablet PO ×2 (09:41→22:17)
[2024-04-19] MEDS: Loratadine 10 MG Tablet PO (09:41)
[2024-04-19] MEDS: Paroxetine 20 MG Tablet 30 MG PO (09:41)
[2024-04-19] MEDS: Enoxaparin 40 MG/0.4 ML Syringe SC (09:42)
[2024-04-19] MEDS: Iron Polysaccharide Complex 150 MG CAPSULE PO (09:42)
[2024-04-19] MEDS: MethylPREDNISolone 125 MG/2 ML Vial 60 MG IV ×2 (09:42→22:17)
[2024-04-19] MEDS: Mag Hydrox/Al Hydrox/Simeth 30 ML UDC PO (09:58)
[2024-04-19] MEDS: Doxycycline 100 MG in 0.9% Normal Saline (250mL Bag) 250 ML 250 MG IV ×2 (10:06→22:14)
[2024-04-19] MEDS: Nystatin Powder 15gm Bottle 1 APPLIC TOPICAL ×2 (10:06→22:16)
--- NOTE | 2024-04-19 11:21 | PN_ITS ---
Subjective Subjective Patient seen and examined. Patient says she felt uncomfortable due to nausea. She had not had any vomiting. She felt her breathing was improving. Her daughter was by her bedside. When asked about the Synthroid daughter said patient has been compliant with his Synthroid but she has not had follow-up with her PCP to check a TSH in about 6 months to a year. She does not see an caustic purification operator for her hypothyroidism. Review of systems otherwise negative. Objective Data Objective Data Vital Signs: Vital Signs Temp Pulse Resp BP Pulse Ox O2 Del Method O2 Flow Rate 97.9 F 65 22 H 142/81 H 95 Nasal Cannula 2 04/19/24 10:00 04/19/24 11:05 04/19/24 11:05 04/19/24 10:00 04/19/24 11:05 04/19/24 11:05 04/19/24 11:05 Oxygen Flow Rate (L/min) 2 Oxygen Delivery Method Nasal Cannula Weight: 196 lb 13.965 oz Body Mass Index (BMI) 33.6 Intake & Output: Intake and Output for Last 24 Hours 04/17/24 04/18/24 04/19/24 23:59 23:59 23:59 Intake Total 2330 / 2330 Output Total 850 / 850 Balance 1480 / 1480 Lab / Micro Data 04/19/24 06:28 04/19/24 06:28 Labs: Laboratory Results - last 24 hr 04/19/24 06:28: WBC 11.8 H, RBC 4.25, Hgb 13.2, Hct 40.6, MCV 95.5, MCH 31.1, MCHC 32.5, RDW Std Deviation 46.6 H, RDW Coeff of Ayad 13.3, Plt Count 264, MPV 9.9, Immature Gran % (Auto) 0.800, Neut % (Auto) 84.6 H, Lymph % (Auto) 8.0 L, [place] % (Auto) 6.5, Eos % (Auto) 0.0, Baso % (Auto) 0.1, Absolute Neuts (auto) 10.0 H, Absolute Lymphs (auto) 0.94, Nucleated RBC % 0, Sodium 137, Potassium 4.8, Chloride 99, Carbon Dioxide 27.1, Anion Gap 11, BUN 21 H, Creatinine 0.91, Estim Creat Clear Calc 54.24, Est GFR (MDRD) Non-Af 64, BUN/Creatinine Ratio 22.9 H, Glucose 114 H, Calcium 8.7, Phosphorus 4.0, Total Bilirubin 0.42, Direct Bilirubin 0.26, AST 113 H, ALT 126 H, Alkaline Phosphatase 163 H, Total Protein 6.5, Albumin 3.8, Globulin 2.7 Micro: Microbiology 04/17/24 18:14 Mucosa - Nose SARS-CoV-2, Influenza & RSV (PCR) - Final Radiography Diagnostic Testing: Radiology Impression Venous Doppler Study 04/18/24 02:00 Interpretation Summary Deep veins of the lower extremities are bilaterally patent and compressible segmentally. There is no evidence of deep vein thrombosis on either side. Valvular competence appears intact within the proximal deep venous systems bilaterally. The great saphenous veins appear bilaterally patent and compressible segmentally. Ordering Physician: Jairo Bai Referring Physician: JANIE PCP Performed By: Jazzy Sellers, NASRA, RVT Abdomen/Pelvis CT 04/18/24 13:05 IMPRESSION: 1. Large fatty liver with nodularity tissue hepatic surface and ill-defined hypodense lesions. Finding may suggest cirrhosis. Metastasis can not be excluded. 2. Constipation without bowel obstruction or pneumoperitoneum. 3. Grade 1 anterior spondylolisthesis of L4 over L5. Apparent lytic lesion at L5 vertebral body. Metastasis can not be excluded. 4. Central pneumobilia could be benign or secondary to infectious or inflammatory response. Clinical correlation is recommended. Reading Location: [facility] Physical Exam Const alert, oriented x3, no apparent distress and average body habitus Constitutional Narrative: class II obesity General Appearance: cooperative HEENT normocephalic, head/scalp atraumatic, hearing grossly normal bilaterally, moist oral mucous membranes and oropharynx normal Eyes PERRL and EOMs intact bilaterally Neck no lymphadenopathy, supple and no JVD Lymph Lymphatic: no lymphadenopathy noted and no lymphedema noted Resp Resp Narrative: diminished breath sounds bibasally, no wheezes or crackles. Remains on 2 L of oxygen by nasal canula Auscultation: wheezes Cardio regular rate, regular rhythm, S1 normal heart sound, S2 normal heart sound and no murmurs GI normal to inspection, nondistended, normoactive bowel sounds and soft to palpation GI Narrative: stool in colostomy bag Extremity normal to inspection, full ROM, normal capillary refill, no clubbing, cyanosis or edema and no calf tenderness General Extremity: no tenderness to palpation of joints or extremities Skin General Skin Exam: no breakdown Neuro oriented x3, CN's II-XII intact bilaterally, moves all extremities, no focal motor deficits and no sensory deficits noted Sensorium / Orientation: awake, alert, oriented to person, oriented to place and oriented to time Speech: speech normal Motor Exam: strength 5/5 throughout and general weakness Psych thought process normal, cooperative and affect normal Appearance: appropriate Assessment & Plan Assessment/Plan (1) COPD with exacerbation: (2) Respiratory insufficiency: PLAN: Plan #HYpoxia due to acute exacerbation of COPD * Patient on 2L of oxygen today. She usually wears 4 L at night at home. Was admitted with a complaint of shortness of breath of about 5 hours prior to admission. Saturating at 70% on room air at home. * CTA of the chest done in the ED showed 25 mm right upper lobe pulmonary nodule concerning for primary lung malignancy and severe upper lobe predominant emphysema and multiple enlarged predominantly right-sided hilar and mediastinal lymph nodes concerning for mets. Also showed evidence of hepatic cirrhosis. * on IV solumedrol. Breathing treatment with bronchodilators. Titrate oxygen to maintain sats >90% * Patient continues to smoke. Counseled strongly to quit. * Breathing treatments with bronchodilators. Titrate oxygen to maintain saturation above 90%. * on IV doxycycline * #Constipation * patient complained of abdominal pain yesterday. * Stat CT abdomen and pelvis with oral and IV contrast ordered showed no evidence of obstruction and showed constipation. CT abdomen and pelvis also showed large fatty liver with nodularity of hepatic surface and ill defined hypodense lesion. * Patient complaining of nausea today. * On Senokot and MiraLAX. Will add on some prune juice today. * place on laxatives to help with constipation * hydrate gently with iVF * #Elevated D-dimer: D-dimer 2.[address] of the chest was however negative for any evidence of PE. #Debility and weakness: Also has ambulatory dysfunction. PT OT on board. Fall precautions. #History of lung cancer * CT chest as stated above showed 25mm right upper lobe pulmonary nodule and severe upper lobe emphysema * she has been diagnosed with lung cancer but is yet to start chemotherapy. * follow up with oncology on outpatient basis. * #Class II obesity: BMI is 33.5. Complicates acute care, expected recovery and prognosis #Liver cirrhosis: * as seen on CT chest. No history of alcohol abuse. * AST and ALT elevated at 115 and 112 respectively and ALP is also up at 153. * However, with her history of obesity, this may be due to SCHULZ. Will benefit from follow up with gastroenterology on outpatient basis. * CT of the abdomen showed large fatty liver with nodularity of hepatic surface and ill defined hypodense lesions, suggestive of cirrhosis, though metastasis cannot be excluded. Patient's daughter tells me they are aware of these findings already. To follow up with gastroenterology and oncology on outpatient basis. * #Hypothyroidism: * TSH is 13.4. Free T4 is also low at 0.5. * Claims compliance with her home synthroid dose of 125mcg daily. * Now on synthroid 200mcg daily * Will benefit from follow-up with endocrinology on outpatient basis. * DVT prophylaxis: lovenox Disposition: Daughter interested in rehab. PT OT on board. Charges/Coding Visit Charges Inpatient E&M: 24473 Subs Hosp L2
[2024-04-19] MEDS: Lactobacillis Acidophilus 1 CAP PO ×3 (14:11→22:17)
[2024-04-19] MEDS: Ascorbic Acid 500 MG Tablet 1000 MG PO (17:21)
[2024-04-19] MEDS: Atorvastatin Calcium 10 MG Tablet PO (22:17)
[2024-04-19] MEDS: Acetaminophen 325 MG Tablet 650 MG PO (22:35)
[2024-04-20] VITALS (15 sets, daily range): BP systolic 112–152; BP diastolic 62–80; PULSE 55–76; RESP 18–24; TEMP 36.3–36.4; O2SAT 95–100; BMI 33.6
[2024-04-20] MEDS: Gabapentin 600 MG Tablet PO ×3 (05:17→21:46)
[2024-04-20] MEDS: Levothyroxine 100 MCG Tablet 200 MCG PO (05:18)
[2024-04-20] MEDS: Ondansetron 4 MG/2 ML Vial IV ×3 (05:18→21:44)
[2024-04-20] MEDS: 0.9% Saline Lock 10 ML Syringe IV ×6 (05:18→21:54)
[2024-04-20] MEDS: Albuterol 2.5 MG/3 ML VIAL.NEB. INHALATION ×3 (05:30→19:15)
[2024-04-20] MEDS: proCHLORPERazine 10 MG/2 ML Vial 5 MG IV ×2 (05:54→16:24)
[2024-04-20 06:05] LABS: Absolute Lymphocyte Count 0.73 X10^3/uL (0.83-4.51); Absolute Neutrophil Count 12.4 X10^3/uL (2.0-7.7); Basophil# 0.02 X10^3/uL; Basophil% 0.1 % (0-1); Hematocrit 40.2 % (37-47); Hemoglobin 13.1 g/dL (12.0-15.0); Lymphocyte # 0.73 X10^3/ul (0.83-4.51); Lymphocyte % 5.2 % (19-41); Mean Corp Hgb Conc 32.6 g/dL (32-36); Mean Corpuscular Hgb 31.2 pg (27.0-32.0); Mean Corpuscular Volume 95.7 fL (81-99); Mean Platelet Vol. 10.1 fl (6.2-12.0); Monocyte# 0.69 X10^3/uL; Monocyte% 4.9 % (0-10); NRBC Flagged by Analyzer 0 % (0-5); Neutrophil # 12.42 X10^3/uL (2.7-7.7); Neutrophil % 89.2 % (47-70); Platelet Count 258 K/mm3 (150-450); RBC Distribution Width CV 13.2 % (11.6-14.6); RBC Distribution Width SD 46.5 fl (35.1-43.9)
[2024-04-20] MEDS: Scopolamine 1mg/72hr Patch 1 PATCH TD (06:38)
[2024-04-20 06:52] LABS: Anion Gap 12 (5-15); BUN 30 mg/dL (4-19); BUN/Creat Ratio 29.3 RATIO (10-20); Calcium,Total 8.6 mg/dL (7.6-11.0); Carbon Dioxide 24.4 mmol/L (21.0-32.0); Chloride 99 mmol/L (98-108); Creatinine, Serum 1.02 mg/dL (0.70-1.20); EST Glomerular Filtration Rate 56 (>60); Estimated Creatinine Clearance 48.42 ml/min (50-250); Glucose 120 mg/dL (70-99); Sodium Level 135 mmol/L (133-145)
[2024-04-20] MEDS: Lactobacillis Acidophilus 1 CAP PO ×4 (09:47→21:47)
[2024-04-20] MEDS: Aspirin E.C. 81 MG Tablet PO (09:48)
[2024-04-20] MEDS: Ascorbic Acid 500 MG Tablet 1000 MG PO ×2 (09:48→16:30)
[2024-04-20] MEDS: Cholecalciferol (Vit D3) 125 MCG CAPSULE (5,000 UNITS) PO (09:49)
[2024-04-20] MEDS: Potassium Chloride Oral Tablet 20 MEQ PO ×2 (09:49→16:30)
[2024-04-20] MEDS: Thiamine Hydrochloride 100 MG Tablet PO (09:49)
[2024-04-20] MEDS: Docusate Sodium 100 MG Capsule PO ×2 (09:50→21:47)
[2024-04-20] MEDS: Calcium Carb/Vitamin D 1 TABLET Tablet PO (09:50)
[2024-04-20] MEDS: Furosemide 20 MG Tablet PO (09:50)
[2024-04-20] MEDS: Cyanocobalamin 500 MCG Tablet PO (09:50)
[2024-04-20] MEDS: Enoxaparin 40 MG/0.4 ML Syringe SC (09:51)
[2024-04-20] MEDS: Nystatin Powder 15gm Bottle 1 APPLIC TOPICAL ×2 (09:51→21:47)
[2024-04-20] MEDS: Iron Polysaccharide Complex 150 MG CAPSULE PO (09:52)
[2024-04-20] MEDS: Paroxetine 20 MG Tablet 30 MG PO (09:53)
[2024-04-20] MEDS: Loratadine 10 MG Tablet PO (09:53)
[2024-04-20] MEDS: Pantoprazole Sodium 40 MG Tablet PO (09:54)
[2024-04-20] MEDS: Senna Tablet 1 TABLET PO (09:54)
[2024-04-20] MEDS: MethylPREDNISolone 125 MG/2 ML Vial 60 MG IV ×2 (09:55→21:47)
[2024-04-20] MEDS: tiZANidine HCl 2 MG Tablet PO ×2 (09:57→21:48)
[2024-04-20] MEDS: Zinc Sulfate 50 mg zinc (220 mg) ORAL capsule PO (09:57)
--- NOTE | 2024-04-20 09:58 | PN_ITS ---
Subjective Subjective Patient seen and examined. She said her nausea had improved. She denied any fever or chills or coughing. She did have a bowel movement yesterday and she has some stool in her colostomy bag today. Review of systems otherwise negative. She is on 4 L of oxygen. Objective Data Objective Data Vital Signs: Vital Signs Temp Pulse Resp BP Pulse Ox O2 Del Method O2 Flow Rate 97.5 F L 66 18 152/80 H 98 Nasal Cannula 4 04/20/24 09:45 04/20/24 09:45 04/20/24 09:45 04/20/24 09:45 04/20/24 09:45 04/20/24 09:45 04/20/24 09:45 Oxygen Flow Rate (L/min) 4 Oxygen Delivery Method Nasal Cannula Weight: 197 lb 1.492 oz Body Mass Index (BMI) 33.6 Intake & Output: Intake and Output for Last 24 Hours 04/18/24 04/19/24 04/20/24 23:59 23:59 23:59 Intake Total 2330 / 2330 520 / 770 250 / 250 Output Total 850 / 850 600 / 1000 600 / 600 Balance 1480 / 1480 -80 / -230 -350 / -350 Lab / Micro Data 04/20/24 05:15 04/20/24 05:15 Labs: Laboratory Results - last 24 hr 04/20/24 05:15: WBC 14.0 H, RBC 4.20, Hgb 13.1, Hct 40.2, MCV 95.7, MCH 31.2, MCHC 32.6, RDW Std Deviation 46.5 H, RDW Coeff of Ayad 13.2, Plt Count 258, MPV 10.1, Immature Gran % (Auto) 0.600, Neut % (Auto) 89.2 H, Lymph % (Auto) 5.2 L, Nance % (Auto) 4.9, Eos % (Auto) 0.0, Baso % (Auto) 0.1, Absolute Neuts (auto) 12.4 H, Absolute Lymphs (auto) 0.73 L, Nucleated RBC % 0, Sodium 135, Potassium 5.0, Chloride 99, Carbon Dioxide 24.4, Anion Gap 12, BUN 30 H, Creatinine 1.02, Estim Creat Clear Calc 48.42 L, Est GFR (MDRD) Non-Af 56 L, BUN/Creatinine Ratio 29.3 H, Glucose 120 H, Calcium 8.6 Micro: Microbiology 04/17/24 18:14 Mucosa - Nose SARS-CoV-2, Influenza & RSV (PCR) - Final Physical Exam Const alert, oriented x3, no apparent distress and average body habitus Constitutional Narrative: class II obesity General Appearance: cooperative HEENT normocephalic, head/scalp atraumatic, hearing grossly normal bilaterally, moist oral mucous membranes and oropharynx normal Eyes PERRL and EOMs intact bilaterally Neck no lymphadenopathy, supple and no JVD Lymph Lymphatic: no lymphadenopathy noted and no lymphedema noted Resp Resp Narrative: diminished breath sounds bibasally, no wheezes or crackles. On 4L of oxygen by nasal canula Cardio regular rate, regular rhythm, S1 normal heart sound, S2 normal heart sound and no murmurs GI normal to inspection, nondistended, normoactive bowel sounds, soft to palpation, non-tender and non-distended GI Narrative: stool in colostomy bag Extremity normal to inspection, full ROM, normal capillary refill, no clubbing, cyanosis or edema and no calf tenderness General Extremity: no tenderness to palpation of joints or extremities Skin General Skin Exam: no breakdown Neuro oriented x3, CN's II-XII intact bilaterally, moves all extremities, no focal motor deficits and no sensory deficits noted Sensorium / Orientation: awake, alert, oriented to person, oriented to place and oriented to time Speech: speech normal Motor Exam: strength 5/5 throughout and general weakness Psych thought process normal, cooperative and affect normal Appearance: appropriate Assessment & Plan Assessment/Plan (1) COPD with exacerbation: (2) Respiratory insufficiency: PLAN: Plan #HYpoxia due to acute exacerbation of COPD * Patient on 4L of oxygen today. She usually wears 4 L at night at home. Was admitted with a complaint of shortness of breath of about 5 hours prior to admission. Saturating at 70% on room air at home. * CTA of the chest done in the ED showed 25 mm right upper lobe pulmonary nodule concerning for primary lung malignancy and severe upper lobe predominant emphysema and multiple enlarged predominantly right-sided hilar and mediastinal lymph nodes concerning for mets. Also showed evidence of hepatic cirrhosis. * on IV solumedrol. Breathing treatment with bronchodilators. Titrate oxygen to maintain sats >90% * Patient continues to smoke. Counseled strongly to quit. * Breathing treatments with bronchodilators. Titrate oxygen to maintain saturation above 90%. * on IV doxycycline * #Constipation * patient complained of abdominal pain * Stat CT abdomen and pelvis with oral and IV contrast ordered showed no evidence of obstruction and showed constipation. CT abdomen and pelvis also showed large fatty liver with nodularity of hepatic surface and ill defined hypodense lesion. * Patient complaining of nausea today. * On Senokot and MiraLAX. * place on laxatives to help with constipation * * #Elevated D-dimer: D-dimer 2.[address] of the chest was however negative for any evidence of PE. #Debility and weakness: Also has ambulatory dysfunction. PT OT on board. Fall precautions. #History of lung cancer * CT chest as stated above showed 25mm right upper lobe pulmonary nodule and severe upper lobe emphysema * she has been diagnosed with lung cancer but is yet to start chemotherapy. * follow up with oncology on outpatient basis. * #Class II obesity: BMI is 33.5. Complicates acute care, expected recovery and prognosis #Liver cirrhosis: * as seen on CT chest. No history of alcohol abuse. * AST and ALT elevated at 115 and 112 respectively and ALP is also up at 153. * However, with her history of obesity, this may be due to SCHULZ. Will benefit from follow up with gastroenterology on outpatient basis. * CT of the abdomen showed large fatty liver with nodularity of hepatic surface and ill defined hypodense lesions, suggestive of cirrhosis, though metastasis cannot be excluded. Patient's daughter tells me they are aware of these findings already. To follow up with gastroenterology and oncology on outpatient basis. * #Hypothyroidism: * TSH is 13.4. Free T4 is also low at 0.5. * Claims compliance with her home synthroid dose of 125mcg daily. * Now on synthroid 200mcg daily * Will benefit from follow-up with endocrinology on outpatient basis. * DVT prophylaxis: lovenox Disposition: Daughter interested in rehab. PT OT on board. Awaiting placement. Charges/Coding Visit Charges Inpatient E&M: 82688 Subs Hosp L2
[2024-04-20] MEDS: Doxycycline 100 MG in 0.9% Normal Saline (250mL Bag) 250 ML 250 MG IV ×2 (10:06→21:44)
[2024-04-20] MEDS: Mag Hydrox/Al Hydrox/Simeth 30 ML UDC PO (16:27)
[2024-04-20] MEDS: Acetaminophen 325 MG Tablet 650 MG PO (21:46)
[2024-04-20] MEDS: Atorvastatin Calcium 10 MG Tablet PO (21:48)
[2024-04-20] MEDS: MELATONIN 3 MG TABLET PO (21:54)
[2024-04-20] MEDS: guaiFENesin 10 ML UDC (200MG/10ML) 20 ML PO (21:54)
[2024-04-21] VITALS (8 sets, daily range): BP systolic 136–153; BP diastolic 66–81; PULSE 54–69; RESP 18–24; TEMP 36.4–36.6; O2SAT 94–99; BMI 33.6
[2024-04-21] MEDS: Gabapentin 600 MG Tablet PO ×3 (04:14→22:25)
[2024-04-21] MEDS: Acetaminophen 325 MG Tablet 650 MG PO ×2 (04:14→22:25)
[2024-04-21] MEDS: 0.9% Saline Lock 10 ML Syringe IV ×5 (04:15→22:23)
[2024-04-21] MEDS: proCHLORPERazine 10 MG/2 ML Vial 5 MG IV ×3 (04:15→22:22)
[2024-04-21] MEDS: Levothyroxine 100 MCG Tablet 200 MCG PO (04:17)
[2024-04-21] MEDS: guaiFENesin 10 ML UDC (200MG/10ML) 20 ML PO (04:19)
[2024-04-21 06:36] LABS: Absolute Lymphocyte Count 0.58 X10^3/uL (0.83-4.51); Absolute Neutrophil Count 12.2 X10^3/uL (2.0-7.7); Basophil# 0.02 X10^3/uL; Basophil% 0.1 % (0-1); Hematocrit 39.4 % (37-47); Hemoglobin 12.7 g/dL (12.0-15.0); Lymphocyte # 0.58 X10^3/ul (0.83-4.51); Lymphocyte % 4.3 % (19-41); Mean Corp Hgb Conc 32.2 g/dL (32-36); Mean Corpuscular Hgb 31.3 pg (27.0-32.0); Mean Platelet Vol. 10.4 fl (6.2-12.0); Monocyte# 0.66 X10^3/uL; Monocyte% 4.9 % (0-10); NRBC Flagged by Analyzer 0 % (0-5); Neutrophil # 12.17 X10^3/uL (2.7-7.7); POSITIVE DIFFERENTIAL YES; Platelet Count 232 K/mm3 (150-450); RBC Distribution Width CV 13.2 % (11.6-14.6); RBC Distribution Width SD 47.3 fl (35.1-43.9); Red Blood Count 4.06 M/mm3 (4.2-5.4); White Blood Count 13.5 K/mm3 (4.4-11.0)
[2024-04-21] MEDS: Ondansetron 4 MG/2 ML Vial IV ×2 (08:35→16:59)
[2024-04-21] MEDS: Ascorbic Acid 500 MG Tablet 1000 MG PO ×2 (08:37→16:54)
[2024-04-21] MEDS: Loratadine 10 MG Tablet PO (08:37)
[2024-04-21] MEDS: Paroxetine 20 MG Tablet 30 MG PO (08:38)
[2024-04-21] MEDS: Enoxaparin 40 MG/0.4 ML Syringe SC (08:39)
[2024-04-21] MEDS: Calcium Carb/Vitamin D 1 TABLET Tablet PO (08:40)
[2024-04-21] MEDS: Cyanocobalamin 500 MCG Tablet PO (08:40)
[2024-04-21] MEDS: Potassium Chloride Oral Tablet 20 MEQ PO ×2 (08:40→16:54)
[2024-04-21] MEDS: Aspirin E.C. 81 MG Tablet PO (08:40)
[2024-04-21] MEDS: Pantoprazole Sodium 40 MG Tablet PO (08:40)
[2024-04-21] MEDS: Furosemide 20 MG Tablet PO (08:41)
[2024-04-21] MEDS: Thiamine Hydrochloride 100 MG Tablet PO (08:41)
[2024-04-21] MEDS: Docusate Sodium 100 MG Capsule PO ×2 (08:41→22:24)
[2024-04-21] MEDS: Lactobacillis Acidophilus 1 CAP PO ×4 (08:41→22:24)
[2024-04-21] MEDS: Zinc Sulfate 50 mg zinc (220 mg) ORAL capsule PO (08:42)
[2024-04-21] MEDS: Iron Polysaccharide Complex 150 MG CAPSULE PO (08:43)
[2024-04-21] MEDS: Nystatin Powder 15gm Bottle 1 APPLIC TOPICAL ×2 (08:43→22:25)
[2024-04-21] MEDS: Senna Tablet 1 TABLET PO (08:47)
[2024-04-21] MEDS: MethylPREDNISolone 125 MG/2 ML Vial 60 MG IV (08:51)
[2024-04-21] MEDS: Doxycycline 100 MG in 0.9% Normal Saline (250mL Bag) 250 ML 250 MG IV (08:52)
[2024-04-21] MEDS: Cholecalciferol (Vit D3) 125 MCG CAPSULE (5,000 UNITS) PO (09:01)
[2024-04-21] MEDS: tiZANidine HCl 2 MG Tablet PO ×2 (09:01→22:25)
--- NOTE | 2024-04-21 09:22 | PN_ITS ---
Subjective Subjective Patient seen and examined. She complained of nausea. Says she is been having some watery bowel movements her colostomy. Review of systems is otherwise negative. Objective Data Objective Data Vital Signs: Vital Signs Temp Pulse Resp BP Pulse Ox O2 Del Method O2 Flow Rate 97.9 F 67 22 H 153/69 H 97 Nasal Cannula 4 04/21/24 08:21 04/21/24 08:21 04/21/24 08:21 04/21/24 08:21 04/21/24 08:21 04/21/24 08:23 04/21/24 08:23 Oxygen Flow Rate (L/min) 4 Oxygen Delivery Method Nasal Cannula Weight: 197 lb Body Mass Index (BMI) 33.6 Intake & Output: Intake and Output for Last 24 Hours 04/19/24 04/20/24 04/21/24 23:59 23:59 23:59 Intake Total 520 / 770 970 / 970 150 / 150 Output Total 600 / 1000 600 / 600 Balance -80 / -230 370 / 370 150 / 150 Lab / Micro Data 04/21/24 05:44 04/20/24 05:15 Labs: Laboratory Results - last 24 hr 04/21/24 05:44: WBC 13.5 H, RBC 4.06 L, Hgb 12.7, Hct 39.4, MCV 97.0, MCH 31.3, MCHC 32.2, RDW Std Deviation 47.3 H, RDW Coeff of Ayad 13.2, Plt Count 232, MPV 10.4, Immature Gran % (Auto) 0.700, Neut % (Auto) 90.0 H, Lymph % (Auto) 4.3 L, Riley % (Auto) 4.9, Eos % (Auto) 0.0, Baso % (Auto) 0.1, Absolute Neuts (auto) 12.2 H, Absolute Lymphs (auto) 0.58 L, Nucleated RBC % 0 Micro: Microbiology 04/17/24 18:14 Mucosa - Nose SARS-CoV-2, Influenza & RSV (PCR) - Final Physical Exam Const alert, oriented x3, no apparent distress and average body habitus Constitutional Narrative: class II obesity General Appearance: cooperative HEENT normocephalic, head/scalp atraumatic, hearing grossly normal bilaterally, moist oral mucous membranes and oropharynx normal Eyes PERRL and EOMs intact bilaterally Neck no lymphadenopathy, supple and no JVD Lymph Lymphatic: no lymphadenopathy noted and no lymphedema noted Resp Resp Narrative: diminished breath sounds bibasally, no wheezes or crackles. On 4L of oxygen by nasal canula Auscultation: wheezes Cardio regular rate, regular rhythm, S1 normal heart sound, S2 normal heart sound and no murmurs GI normal to inspection, nondistended, normoactive bowel sounds and soft to palpation GI Narrative: stool in colostomy bag Extremity normal to inspection, full ROM, normal capillary refill and no clubbing, cyanosis or edema General Extremity: no tenderness to palpation of joints or extremities Skin General Skin Exam: no breakdown Neuro oriented x3, CN's II-XII intact bilaterally, moves all extremities, no focal motor deficits and no sensory deficits noted Sensorium / Orientation: awake and alert Speech: speech normal Motor Exam: strength 5/5 throughout and general weakness Psych thought process normal, cooperative and affect normal Appearance: appropriate Assessment & Plan Assessment/Plan (1) COPD with exacerbation: (2) Respiratory insufficiency: PLAN: Plan #HYpoxia due to acute exacerbation of COPD * Patient remains on 4L of oxygen, which is her baseline. She usually wears 4 L at night at home. Was admitted with a complaint of shortness of breath of about 5 hours prior to admission. Saturating at 70% on room air at home. * CTA of the chest done in the ED showed 25 mm right upper lobe pulmonary nodule concerning for primary lung malignancy and severe upper lobe predominant emphysema and multiple enlarged predominantly right-sided hilar and mediastinal lymph nodes concerning for mets. Also showed evidence of hepatic cirrhosis. * on IV solumedrol. Breathing treatment with bronchodilators. Titrate oxygen to maintain sats >90% * Patient continues to smoke. Counseled strongly to quit. * Breathing treatments with bronchodilators. Titrate oxygen to maintain saturation above 90%. * on IV doxycycline. Swith to PO prednisone and PO doxycyline today * #Constipation * patient complained of abdominal pain * Stat CT abdomen and pelvis with oral and IV contrast ordered showed no evidence of obstruction and showed constipation. CT abdomen and pelvis also showed large fatty liver with nodularity of hepatic surface and ill defined hypodense lesion. * Patient still complaining of nausea. * On Senokot and MiraLAX to help with consitpation. Will add some prune juice today. * * #Elevated D-dimer: D-dimer 2.[address] of the chest was however negative for any evidence of PE. #Debility and weakness: Also has ambulatory dysfunction. PT OT on board. Fall precautions. #History of lung cancer * CT chest as stated above showed 25mm right upper lobe pulmonary nodule and severe upper lobe emphysema * she has been diagnosed with lung cancer but is yet to start chemotherapy. * follow up with oncology on outpatient basis. * #Class II obesity: BMI is 33.5. Complicates acute care, expected recovery and prognosis #Liver cirrhosis: * as seen on CT chest. No history of alcohol abuse. * AST and ALT elevated at 115 and 112 respectively and ALP is also up at 153. * However, with her history of obesity, this may be due to SCHULZ. Will benefit from follow up with gastroenterology on outpatient basis. * CT of the abdomen showed large fatty liver with nodularity of hepatic surface and ill defined hypodense lesions, suggestive of cirrhosis, though metastasis cannot be excluded. Patient's daughter tells me they are aware of these findings already. To follow up with gastroenterology and oncology on outpatient basis. * #Hypothyroidism: * TSH is 13.4. Free T4 is also low at 0.5. * Claims compliance with her home synthroid dose of 125mcg daily. * Now on synthroid 200mcg daily * Will benefit from follow-up with endocrinology on outpatient basis. * DVT prophylaxis: lovenox Disposition: awaiting placement Charges/Coding Visit Charges Inpatient E&M: 62211 Subs Hosp L2
--- NOTE | 2024-04-21 10:58 | CASEMGMT ---
Discharge Planning A list of SNF providers including quality and resource use data and consistent with the patient's preferred geographic region, medical needs, and insurance network was created in [employer] Guide.? This list was provided to the SW. Ananya De Oliveira Discharge Planning Asst.
--- NOTE | 2024-04-21 11:32 | CASEMGMT ---
Social Work- SW met with pt to introduce self and role. A list of SNF providers including quality and resource use data and consistent with the patient?s preferred geographic region, medical needs, and insurance network were provided from the [employer] Guide. Pt expressed feeling very fatigued. Pt gave permission for SW to call pt dtr. ARCADIO called dtr Amanda who requests a list be texted, as she will not be in to visit pt until this evening and would like time to review prior. ARCADIO notified DCA of request and will follow up with pt dtr after she has the opportunity to review list and discuss with pt. GEORGE Stiles
--- NOTE | 2024-04-21 11:45 | CASEMGMT ---
Discharge Planning A list of?SNF providers including quality and resource use data and consistent with the patient's preferred geographic region, medical needs, and insurance network were provided to pts daughter via text message from the [employer] link. Ananya De Oliveira, Discharge Planning Asst.
[2024-04-21 14:02] LABS: Anion Gap 9 (5-15); BUN 29 mg/dL (4-19); BUN/Creat Ratio 28.9 RATIO (10-20); Calcium,Total 8.6 mg/dL (7.6-11.0); Carbon Dioxide 26.3 mmol/L (21.0-32.0); Chloride 99 mmol/L (98-108); Creatinine, Serum 0.99 mg/dL (0.70-1.20); EST Glomerular Filtration Rate 58 (>60); Estimated Creatinine Clearance 49.87 ml/min (50-250); Glucose 117 mg/dL (70-99); Potassium 5.1 mmol/L (3.3-5.1); Sodium Level 134 mmol/L (133-145)
[2024-04-21] MEDS: Mag Hydrox/Al Hydrox/Simeth 30 ML UDC PO (17:00)
[2024-04-21] MEDS: Doxycycline 100 MG CAPSULE PO (22:24)
[2024-04-21] MEDS: MELATONIN 3 MG TABLET PO (22:24)
[2024-04-21] MEDS: Atorvastatin Calcium 10 MG Tablet PO (22:25)
[2024-04-21] MEDS: Albuterol 2.5 MG/3 ML VIAL.NEB. INHALATION (23:20)
[2024-04-22] VITALS (9 sets, daily range): BP systolic 119–151; BP diastolic 60–76; PULSE 54–64; RESP 18–20; TEMP 36.3–36.7; O2SAT 94–100; BMI 33.6
[2024-04-22] MEDS: Levothyroxine 100 MCG Tablet 200 MCG PO (05:09)
[2024-04-22] MEDS: Gabapentin 600 MG Tablet PO ×3 (05:11→21:27)
[2024-04-22] MEDS: Acetaminophen 325 MG Tablet 650 MG PO ×3 (05:11→21:07)
[2024-04-22] MEDS: guaiFENesin 10 ML UDC (200MG/10ML) 20 ML PO ×2 (05:11→21:27)
[2024-04-22 06:30] LABS: Absolute Lymphocyte Count 0.89 X10^3/uL (0.83-4.51); Basophil# 0.01 X10^3/uL; Basophil% 0.1 % (0-1); Eosinophil# 0.02 X10^3/uL; Eosinophils% 0.1 % (0-5); Hematocrit 39.1 % (37-47); Hemoglobin 12.7 g/dL (12.0-15.0); Lymphocyte # 0.89 X10^3/ul (0.83-4.51); Lymphocyte % 6.4 % (19-41); Mean Corp Hgb Conc 32.5 g/dL (32-36); Mean Corpuscular Hgb 31.1 pg (27.0-32.0); Mean Corpuscular Volume 95.8 fL (81-99); Mean Platelet Vol. 10.3 fl (6.2-12.0); Monocyte% 6.5 % (0-10); NRBC Flagged by Analyzer 0 % (0-5); Neutrophil # 11.95 X10^3/uL (2.7-7.7); Neutrophil % 86.1 % (47-70); Platelet Count 218 K/mm3 (150-450); RBC Distribution Width CV 13.1 % (11.6-14.6); RBC Distribution Width SD 46.5 fl (35.1-43.9); Red Blood Count 4.08 M/mm3 (4.2-5.4); White Blood Count 13.9 K/mm3 (4.4-11.0)
[2024-04-22 06:53] LABS: Anion Gap 8 (5-15); BUN 27 mg/dL (4-19); BUN/Creat Ratio 28.3 RATIO (10-20); Calcium,Total 8.5 mg/dL (7.6-11.0); Carbon Dioxide 29.5 mmol/L (21.0-32.0); Chloride 98 mmol/L (98-108); Creatinine, Serum 0.94 mg/dL (0.70-1.20); EST Glomerular Filtration Rate 62 (>60); Estimated Creatinine Clearance 52.54 ml/min (50-250); Glucose 93 mg/dL (70-99); Potassium 4.9 mmol/L (3.3-5.1); Sodium Level 135 mmol/L (133-145)
[2024-04-22] MEDS: proCHLORPERazine 10 MG/2 ML Vial 5 MG IV ×2 (09:18→16:58)
[2024-04-22] MEDS: 0.9% Saline Lock 10 ML Syringe IV ×3 (09:18→16:58)
--- NOTE | 2024-04-22 09:20 | CASEMGMT ---
Addendum entered by Angela Lopez 04/22/24 15:31: Social Work- TCU accepted pt and can admit tomorrow 04/23. Pt and dtr updated. GEORGE Stiles Original Note: Social Work- SW received choices for SNF via pt dtr. [facility]. [facility] and [facility] alternates. Referral completed to TCU. SW remains available to follow. GEORGE Stiles
--- NOTE | 2024-04-22 09:23 | PN_ITS ---
Subjective Subjective Patient seen and examined. She has no complaints. She says her nausea is much better. Review of systems otherwise negative. She has remained hemodynamically stable and is still awaiting placement. Objective Data Objective Data Vital Signs: Vital Signs Temp Pulse Resp BP Pulse Ox O2 Del Method O2 Flow Rate 97.4 F L 57 L 20 H 129/73 H 98 Nasal Cannula 4 04/22/24 05:03 04/22/24 05:03 04/22/24 05:04 04/22/24 05:03 04/22/24 08:50 04/22/24 08:50 04/22/24 08:50 Oxygen Flow Rate (L/min) 4 Oxygen Delivery Method Nasal Cannula Weight: 197 lb 1.492 oz Body Mass Index (BMI) 33.6 Intake & Output: Intake and Output for Last 24 Hours 04/20/24 04/21/24 04/22/24 23:59 23:59 23:59 Intake Total 970 / 970 1160 / 1160 200 / 200 Output Total 600 / 600 Balance 370 / 370 1160 / 1160 200 / 200 Lab / Micro Data 04/22/24 05:14 04/22/24 05:14 Labs: Laboratory Results - last 24 hr 04/21/24 05:44: Sodium 134, Potassium 5.1, Chloride 99, Carbon Dioxide 26.3, Anion Gap 9, BUN 29 H, Creatinine 0.99, Estim Creat Clear Calc 49.87 L, Est GFR (MDRD) Non-Af 58 L, BUN/Creatinine Ratio 28.9 H, Glucose 117 H, Calcium 8.6 04/22/24 05:14: WBC 13.9 H, RBC 4.08 L, Hgb 12.7, Hct 39.1, MCV 95.8, MCH 31.1, MCHC 32.5, RDW Std Deviation 46.5 H, RDW Coeff of Ayad 13.1, Plt Count 218, MPV 10.3, Immature Gran % (Auto) 0.800, Neut % (Auto) 86.1 H, Lymph % (Auto) 6.4 L, Evangeline % (Auto) 6.5, Eos % (Auto) 0.1, Baso % (Auto) 0.1, Absolute Neuts (auto) 12.0 H, Absolute Lymphs (auto) 0.89, Nucleated RBC % 0, Sodium 135, Potassium 4.9, Chloride 98, Carbon Dioxide 29.5, Anion Gap 8, BUN 27 H, Creatinine 0.94, Estim Creat Clear Calc 52.54, Est GFR (MDRD) Non-Af 62, BUN/Creatinine Ratio 28.3 H, Glucose 93, Calcium 8.5 Micro: Microbiology 04/17/24 18:14 Mucosa - Nose SARS-CoV-2, Influenza & RSV (PCR) - Final Physical Exam Const alert, oriented x3, no apparent distress and average body habitus Constitutional Narrative: class II obesity General Appearance: cooperative HEENT normocephalic, head/scalp atraumatic, hearing grossly normal bilaterally, moist oral mucous membranes and oropharynx normal Eyes PERRL and EOMs intact bilaterally Neck no lymphadenopathy, supple and no JVD Lymph Lymphatic: no lymphadenopathy noted and no lymphedema noted Resp Resp Narrative: diminished breath sounds bibasally, no wheezes or crackles. On 4L of oxygen by nasal canula Auscultation: wheezes Cardio regular rate, regular rhythm, S1 normal heart sound, S2 normal heart sound and no murmurs GI normal to inspection, nondistended, normoactive bowel sounds, soft to palpation, non-tender and non-distended GI Narrative: stool in colostomy bag Extremity normal to inspection, full ROM, normal capillary refill, no clubbing, cyanosis or edema and no calf tenderness General Extremity: no tenderness to palpation of joints or extremities Skin Skin Narrative: Patient has no evidence of rash, abscess, wounds or jaundice. General Skin Exam: no breakdown Neuro oriented x3, CN's II-XII intact bilaterally, moves all extremities, no focal motor deficits and no sensory deficits noted Sensorium / Orientation: awake, alert, oriented to person, oriented to place and oriented to time Speech: speech normal Motor Exam: strength 5/5 throughout and general weakness Psych thought process normal, cooperative and affect normal Appearance: appropriate Assessment & Plan Assessment/Plan (1) COPD with exacerbation: (2) Respiratory insufficiency: PLAN: Plan #HYpoxia due to acute exacerbation of COPD * Patient remains on 4L of oxygen, which is her baseline. She usually wears 4 L at night at home. Was admitted with a complaint of shortness of breath of about 5 hours prior to admission. Saturating at 70% on room air at home. * CTA of the chest done in the ED showed 25 mm right upper lobe pulmonary nodule concerning for primary lung malignancy and severe upper lobe predominant emphysema and multiple enlarged predominantly right-sided hilar and mediastinal lymph nodes concerning for mets. Also showed evidence of hepatic cirrhosis. * Breathing treatment with bronchodilators. Titrate oxygen to maintain sats >90% * Patient continues to smoke. Counseled strongly to quit. * Breathing treatments with bronchodilators. Titrate oxygen to maintain saturation above 90%. * on PO prednisone and PO doxycycline * on IV doxycycline. Swith to PO prednisone and PO doxycyline today * #Constipation * patient complained of abdominal pain * Stat CT abdomen and pelvis with oral and IV contrast ordered showed no evidence of obstruction and showed constipation. CT abdomen and pelvis also showed large fatty liver with nodularity of hepatic surface and ill defined hypodense lesion. * Patient still complaining of nausea. * On Senokot and MiraLAX to help with consitpation. * feels much better * * #Elevated D-dimer: D-dimer 2.[address] of the chest was however negative for any evidence of PE. #Debility and weakness: Also has ambulatory dysfunction. PT OT on board. Fall precautions. #History of lung cancer * CT chest as stated above showed 25mm right upper lobe pulmonary nodule and severe upper lobe emphysema * she has been diagnosed with lung cancer but is yet to start chemotherapy. * follow up with oncology on outpatient basis. * #Class II obesity: BMI is 33.5. Complicates acute care, expected recovery and prognosis #Liver cirrhosis: * as seen on CT chest. No history of alcohol abuse. * AST and ALT elevated at 115 and 112 respectively and ALP is also up at 153. * However, with her history of obesity, this may be due to SCHULZ. Will benefit from follow up with gastroenterology on outpatient basis. * CT of the abdomen showed large fatty liver with nodularity of hepatic surface and ill defined hypodense lesions, suggestive of cirrhosis, though metastasis cannot be excluded. Patient's daughter tells me they are aware of these findings already. To follow up with gastroenterology and oncology on outpatient basis. * #Hypothyroidism: * TSH is 13.4. Free T4 is also low at 0.5. * Claims compliance with her home synthroid dose of 125mcg daily. * Now on synthroid 200mcg daily * Will benefit from follow-up with endocrinology on outpatient basis. * DVT prophylaxis: lovenox Disposition: still awaiting placement Charges/Coding Visit Charges Inpatient E&M: 95369 Subs Hosp L2
[2024-04-22] MEDS: Potassium Chloride Oral Tablet 20 MEQ PO ×2 (10:17→16:49)
[2024-04-22] MEDS: Zinc Sulfate 50 mg zinc (220 mg) ORAL capsule PO (10:17)
[2024-04-22] MEDS: Cholecalciferol (Vit D3) 125 MCG CAPSULE (5,000 UNITS) PO (10:18)
[2024-04-22] MEDS: Cyanocobalamin 500 MCG Tablet PO (10:19)
[2024-04-22] MEDS: Pantoprazole Sodium 40 MG Tablet PO (10:19)
[2024-04-22] MEDS: tiZANidine HCl 2 MG Tablet PO ×2 (10:19→21:27)
[2024-04-22] MEDS: Loratadine 10 MG Tablet PO (10:19)
[2024-04-22] MEDS: Senna Tablet 1 TABLET PO (10:20)
[2024-04-22] MEDS: Lactobacillis Acidophilus 1 CAP PO ×4 (10:20→21:26)
[2024-04-22] MEDS: Nystatin Powder 15gm Bottle 1 APPLIC TOPICAL ×2 (10:21→21:27)
[2024-04-22] MEDS: Ascorbic Acid 500 MG Tablet 1000 MG PO ×2 (10:21→16:49)
[2024-04-22] MEDS: Iron Polysaccharide Complex 150 MG CAPSULE PO (10:22)
[2024-04-22] MEDS: Thiamine Hydrochloride 100 MG Tablet PO (10:22)
[2024-04-22] MEDS: Furosemide 20 MG Tablet PO (10:23)
[2024-04-22] MEDS: predniSONE 20 MG Tablet 40 MG PO (10:24)
[2024-04-22] MEDS: Doxycycline 100 MG CAPSULE PO ×2 (10:26→21:27)
[2024-04-22] MEDS: Calcium Carb/Vitamin D 1 TABLET Tablet PO (10:26)
[2024-04-22] MEDS: Aspirin E.C. 81 MG Tablet PO (10:26)
[2024-04-22] MEDS: Docusate Sodium 100 MG Capsule PO ×2 (10:27→21:27)
[2024-04-22] MEDS: Enoxaparin 40 MG/0.4 ML Syringe SC (10:27)
[2024-04-22] MEDS: Paroxetine 20 MG Tablet 30 MG PO (10:32)
[2024-04-22] MEDS: Ondansetron 4 MG/2 ML Vial IV ×2 (10:41→21:05)
[2024-04-22] MEDS: Albuterol 2.5 MG/3 ML VIAL.NEB. INHALATION (11:55)
[2024-04-22] MEDS: MELATONIN 3 MG TABLET PO (21:27)
[2024-04-22] MEDS: Atorvastatin Calcium 10 MG Tablet PO (21:27)
[2024-04-23] VITALS (8 sets, daily range): BP systolic 122–154; BP diastolic 72–87; PULSE 55–66; RESP 18–22; TEMP 36.3–37.1; O2SAT 96–100; BMI 33.5
[2024-04-23] MEDS: Albuterol 2.5 MG/3 ML VIAL.NEB. INHALATION (02:35)
[2024-04-23 05:59] LABS: Absolute Lymphocyte Count 0.87 X10^3/uL (0.83-4.51); Absolute Neutrophil Count 12.3 X10^3/uL (2.0-7.7); Basophil# 0.01 X10^3/uL; Basophil% 0.1 % (0-1); Eosinophil# 0.02 X10^3/uL; Eosinophils% 0.1 % (0-5); Hematocrit 40.7 % (37-47); Hemoglobin 13.4 g/dL (12.0-15.0); Lymphocyte # 0.87 X10^3/ul (0.83-4.51); Lymphocyte % 6.1 % (19-41); Mean Corp Hgb Conc 32.9 g/dL (32-36); Mean Corpuscular Hgb 31.7 pg (27.0-32.0); Mean Corpuscular Volume 96.2 fL (81-99); Monocyte# 0.88 X10^3/uL; Monocyte% 6.2 % (0-10); NRBC Flagged by Analyzer 0 % (0-5); Neutrophil # 12.33 X10^3/uL (2.7-7.7); Neutrophil % 86.7 % (47-70); Platelet Count 205 K/mm3 (150-450); RBC Distribution Width SD 46.3 fl (35.1-43.9); Red Blood Count 4.23 M/mm3 (4.2-5.4); White Blood Count 14.2 K/mm3 (4.4-11.0)
[2024-04-23] MEDS: Gabapentin 600 MG Tablet PO (06:16)
[2024-04-23] MEDS: proCHLORPERazine 10 MG/2 ML Vial 5 MG IV ×2 (06:17→12:20)
[2024-04-23] MEDS: Levothyroxine 100 MCG Tablet 200 MCG PO (06:17)
[2024-04-23] MEDS: Acetaminophen 325 MG Tablet 650 MG PO (06:20)
[2024-04-23 06:29] LABS: Anion Gap 7 (5-15); BUN 28 mg/dL (4-19); BUN/Creat Ratio 27.6 RATIO (10-20); Calcium,Total 8.6 mg/dL (7.6-11.0); Carbon Dioxide 31.3 mmol/L (21.0-32.0); Chloride 97 mmol/L (98-108); Creatinine, Serum 1.03 mg/dL (0.70-1.20); EST Glomerular Filtration Rate 55 (>60); Estimated Creatinine Clearance 47.95 ml/min (50-250); Glucose 100 mg/dL (70-99); Potassium 4.9 mmol/L (3.3-5.1); Sodium Level 136 mmol/L (133-145)
[2024-04-23] MEDS: predniSONE 20 MG Tablet 40 MG PO (09:31)
[2024-04-23] MEDS: Lactobacillis Acidophilus 1 CAP PO (09:31)
[2024-04-23] MEDS: Docusate Sodium 100 MG Capsule PO (09:32)
[2024-04-23] MEDS: Ascorbic Acid 500 MG Tablet 1000 MG PO (09:32)
[2024-04-23] MEDS: Calcium Carb/Vitamin D 1 TABLET Tablet PO (09:32)
[2024-04-23] MEDS: Thiamine Hydrochloride 100 MG Tablet PO (09:32)
[2024-04-23] MEDS: Iron Polysaccharide Complex 150 MG CAPSULE PO (09:33)
[2024-04-23] MEDS: Aspirin E.C. 81 MG Tablet PO (09:33)
[2024-04-23] MEDS: Potassium Chloride Oral Tablet 20 MEQ PO (09:33)
[2024-04-23] MEDS: Pantoprazole Sodium 40 MG Tablet PO (09:33)
[2024-04-23] MEDS: Cyanocobalamin 500 MCG Tablet PO (09:33)
[2024-04-23] MEDS: Furosemide 20 MG Tablet PO (09:33)
[2024-04-23] MEDS: Doxycycline 100 MG CAPSULE PO (09:34)
[2024-04-23] MEDS: Enoxaparin 40 MG/0.4 ML Syringe SC (09:34)
[2024-04-23] MEDS: Senna Tablet 1 TABLET PO (09:34)
[2024-04-23] MEDS: Paroxetine 20 MG Tablet 30 MG PO (09:35)
[2024-04-23] MEDS: tiZANidine HCl 2 MG Tablet PO (09:35)
[2024-04-23] MEDS: Cholecalciferol (Vit D3) 125 MCG CAPSULE (5,000 UNITS) PO (09:35)
[2024-04-23] MEDS: Ondansetron 4 MG/2 ML Vial IV (09:40)
[2024-04-23] MEDS: Scopolamine 1mg/72hr Patch 1 PATCH TD (09:45)
[2024-04-23] MEDS: Loratadine 10 MG Tablet PO (09:46)
[2024-04-23] MEDS: Nystatin Powder 15gm Bottle 1 APPLIC TOPICAL (09:46)
--- NOTE | 2024-04-23 09:52 | PCM.TXEXTCAR ---
Diet Diet Order/Speech Therapy: 04/21/24 10:22 Diet: Regular - General Type of Dietary Supplement:: Ensure Clear Routine Orders/Code Status Enema Type: Fleetz Enema Frequency: Daily PRN Suppository Type: Dulcolax 10mg Suppository Frequency: Daily PRN DC O2, CPAP, BIPAP needs Home O2 Discharge instructions: No Therapies Weight Bearing: Weight bearing as tolerated Extremity Affected:: Bilateral Lower Physical Therapy: Eval and Treat Occupational Therapy: Eval and Treat Problem/Diagnosis (1) COPD with exacerbation: Status: Chronic Code(s): J44.1 - Chronic obstructive pulmonary disease with (acute) exacerbation (2) Respiratory insufficiency: Status: Acute Code(s): R06.89 - Other abnormalities of breathing Plan #HYpoxia due to acute exacerbation of COPD Patient remains on 4L of oxygen, which is her baseline. She usually wears 4 L at night at home. Was admitted with a complaint of shortness of breath of about 5 hours prior to admission. Saturating at 70% on room air at home. CTA of the chest done in the ED showed 25 mm right upper lobe pulmonary nodule concerning for primary lung malignancy and severe upper lobe predominant emphysema and multiple enlarged predominantly right-sided hilar and mediastinal lymph nodes concerning for mets. Also showed evidence of hepatic cirrhosis. Breathing treatment with bronchodilators. Titrate oxygen to maintain sats >90% Patient continues to smoke. Counseled strongly to quit. Breathing treatments with bronchodilators. Titrate oxygen to maintain saturation above 90%. on PO prednisone and PO doxycycline on IV doxycycline. Swith to PO prednisone and PO doxycyline today #Constipation patient complained of abdominal pain Stat CT abdomen and pelvis with oral and IV contrast ordered showed no evidence of obstruction and showed constipation. CT abdomen and pelvis also showed large fatty liver with nodularity of hepatic surface and ill defined hypodense lesion. Patient still complaining of nausea. On Senokot and MiraLAX to help with consitpation. feels much better #Elevated D-dimer: D-dimer 2.[address] of the chest was however negative for any evidence of PE. #Debility and weakness: Also has ambulatory dysfunction. PT OT on board. Fall precautions. #History of lung cancer CT chest as stated above showed 25mm right upper lobe pulmonary nodule and severe upper lobe emphysema she has been diagnosed with lung cancer but is yet to start chemotherapy. follow up with oncology on outpatient basis. #Class II obesity: BMI is 33.5. Complicates acute care, expected recovery and prognosis #Liver cirrhosis: as seen on CT chest. No history of alcohol abuse. AST and ALT elevated at 115 and 112 respectively and ALP is also up at 153. However, with her history of obesity, this may be due to SCHULZ. Will benefit from follow up with gastroenterology on outpatient basis. CT of the abdomen showed large fatty liver with nodularity of hepatic surface and ill defined hypodense lesions, suggestive of cirrhosis, though metastasis cannot be excluded. Patient's daughter tells me they are aware of these findings already. To follow up with gastroenterology and oncology on outpatient basis. #Hypothyroidism: TSH is 13.4. Free T4 is also low at 0.5. Claims compliance with her home synthroid dose of 125mcg daily. Now on synthroid 200mcg daily Will benefit from follow-up with endocrinology on outpatient basis. DVT prophylaxis: lovenox Disposition: still awaiting placement Allergies/Procedures Done in Hospital Allergies Sulfa (Sulfonamide Antibiotics) Allergy (Unknown, Verified 04/17/24 17:34) PT UNSURE OF REACTION varenicline (From Chantix) Adverse Reaction (Severe, Verified 04/17/24 17:35) SUICIDAL IDEATION Procedures: None Type of Care/Length of Stay Estimated LOS: Convalescent Care Less Than 30 days Type of Care Needed: Skilled Rehab Potential: Fair Prognosis: Fair Additional Orders/Day of Discharge Day of Discharge: 04/23/24 Dietary and Speech Recommendations Dietitian Recommendations/Changes: Will liberalize diet to Regular to help optimize pt nutritional intake Will order Ensure Clear tid w/ meals for increased nutrition if consumed. Discharge Plan Admission Admit Date/Time: 04/17/24 22:41 Primary Reason for Your Visit: COPD exacerbation Attending Provider: Radha Nichols Primary Care Provider: Christine Figueredo Consulting Providers: Jairo Bai Instructions Patient Instructions: Discharge Instructions: COPD Discharge Orders/Prescriptions Prescriptions: New prednisone 20 mg Tablet 40 mg PO BREAKFAST 3 Days Qty: 6 0RF levothyroxine 100 mcg Tablet 200 mcg PO DAILY@0600 Qty: 30 2RF Continued albuterol sulfate 90 mcg/actuation HFA aerosol inhaler 2 puff INHALATION Q4H PRN PRN (Reason: sob) atorvastatin 10 mg tablet 10 mg PO DAILY furosemide 20 mg tablet 20 mg PO DAILY gabapentin 600 mg tablet 600 mg PO TID tizanidine 2 mg tablet 2 mg PO BID cetirizine 10 mg tablet 10 mg PO DAILY hydrocodone-acetaminophen 5-325 mg tablet 1 tab PO Q8H PRN PRN (Reason: pain) potassium chloride 20 mEq tablet,ER particles/crystals 20 meq PO BID paroxetine HCl 30 mg tablet 30 mg PO DAILY pantoprazole 40 mg tablet,delayed release (DR/EC) 40 mg PO DAILY Bevespi Aerosphere 9-4.8 mcg HFA aerosol inhaler 2 puff INHALATION BID sennosides [Natural Senna Laxative] 8.6 mg tablet 8.6 mg PO DAILY docusate sodium [Colace] 100 mg capsule 100 mg PO BID aspirin [Adult Aspirin Regimen] 81 mg tablet,delayed release (DR/EC) 81 mg PO DAILY cyanocobalamin (vitamin B-12) [B-12 DOTS] 500 mcg tablet 500 mcg PO QDAY thiamine HCl (vitamin B1) [Vitamin B-1] 100 mg tablet 100 mg PO DAILY calcium phos,dibas-vitamin D3 77-400 mg-unit tablet 1 tab PO DAILY polysaccharide iron complex [Ferrex 150] 150 mg iron capsule 150 mg PO DAILY Discontinued levothyroxine 125 mcg tablet 125 mcg PO DAILY Referrals / Follow Up: NOT,DEFINED [Non-Staff] - Christine Figueredo [employer] [Primary Care Provider] - Within 1 Week Disposition Disposition (needs filled in before D/C Order can be placed): Custodial Facility
--- NOTE | 2024-04-23 09:53 | DS.PCM_ITS ---
Providers Date of Admission: 04/17/24 Date of Discharge: 04/23/24 Primary Care Physician: Christine Figueredo, RESPIRATORY THERAPY AIDE-C Reason For Visit: AE COPD, RESIRATORY INSUFFICIENCY Diagnosis Discharge Diagnosis (1) COPD with exacerbation: Status: Chronic Code(s): J44.1 - Chronic obstructive pulmonary disease with (acute) exacerbation (2) Respiratory insufficiency: Status: Acute Code(s): R06.89 - Other abnormalities of breathing Plan #HYpoxia due to acute exacerbation of COPD * Patient remains on 4L of oxygen, which is her baseline. She usually wears 4 L at night at home. Was admitted with a complaint of shortness of breath of about 5 hours prior to admission. Saturating at 70% on room air at home. * CTA of the chest done in the ED showed 25 mm right upper lobe pulmonary nodule concerning for primary lung malignancy and severe upper lobe predominant emphysema and multiple enlarged predominantly right-sided hilar and mediastinal lymph nodes concerning for mets. Also showed evidence of hepatic cirrhosis. * Breathing treatment with bronchodilators. Titrate oxygen to maintain sats >90% * Patient continues to smoke. Counseled strongly to quit. * Breathing treatments with bronchodilators. Titrate oxygen to maintain saturation above 90%. * on PO prednisone and PO doxycycline * on IV doxycycline. Swith to PO prednisone and PO doxycyline today * #Constipation * patient complained of abdominal pain * Stat CT abdomen and pelvis with oral and IV contrast ordered showed no evidence of obstruction and showed constipation. CT abdomen and pelvis also showed large fatty liver with nodularity of hepatic surface and ill defined hypodense lesion. * Patient still complaining of nausea. * On Senokot and MiraLAX to help with consitpation. * feels much better * * #Elevated D-dimer: D-dimer 2.[address] of the chest was however negative for any evidence of PE. #Debility and weakness: Also has ambulatory dysfunction. PT OT on board. Fall precautions. #History of lung cancer * CT chest as stated above showed 25mm right upper lobe pulmonary nodule and severe upper lobe emphysema * she has been diagnosed with lung cancer but is yet to start chemotherapy. * follow up with oncology on outpatient basis. * #Class II obesity: BMI is 33.5. Complicates acute care, expected recovery and prognosis #Liver cirrhosis: * as seen on CT chest. No history of alcohol abuse. * AST and ALT elevated at 115 and 112 respectively and ALP is also up at 153. * However, with her history of obesity, this may be due to SCHULZ. Will benefit from follow up with gastroenterology on outpatient basis. * CT of the abdomen showed large fatty liver with nodularity of hepatic surface and ill defined hypodense lesions, suggestive of cirrhosis, though metastasis cannot be excluded. Patient's daughter tells me they are aware of these findings already. To follow up with gastroenterology and oncology on outpatient basis. * #Hypothyroidism: * TSH is 13.4. Free T4 is also low at 0.5. * Claims compliance with her home synthroid dose of 125mcg daily. * Now on synthroid 200mcg daily * Will benefit from follow-up with endocrinology on outpatient basis. * DVT prophylaxis: lovenox Disposition: still awaiting placement Medications at Discharge Home Medications albuterol sulfate 90 mcg/actuation aerosol inhaler 2 puff inhalation Q4H PRN PRN sob 04/17/24 aspirin 81 mg tablet,delayed release (Adult Aspirin Regimen) 81 mg PO DAILY blood thinner 04/17/24 atorvastatin 10 mg tablet 10 mg PO DAILY cholesterol 04/17/24 calcium phosphate,dibasic 77 mg-vitamin D3 400 unit tablet 1 tab PO DAILY supplement 04/17/24 cetirizine 10 mg tablet 10 mg PO DAILY allergies 04/17/24 cyanocobalamin (vitamin B-12) 500 mcg tablet (B-12 DOTS) 500 mcg PO QDAY supplement 04/17/24 docusate sodium 100 mg capsule (Colace) 100 mg PO BID stool softener 04/17/24 furosemide 20 mg tablet 20 mg PO DAILY fluid pill 04/17/24 gabapentin 600 mg tablet 600 mg PO TID nerve pain 04/17/24 glycopyrrolate 9 mcg-formoterol 4.8 mcg HFA aerosol inhaler (Bevespi Aerosphere) 2 puff inhalation BID respiratory 04/17/24 hydrocodone-acetaminophen 5-325mg 5mg-325mg 1 tab PO Q8H PRN PRN pain 04/17/24 pantoprazole 40 mg tablet,delayed release 40 mg PO DAILY reflux 04/17/24 paroxetine HCl 30 mg tablet 30 mg PO DAILY mood 04/17/24 polysaccharide iron complex 150 mg iron capsule (Ferrex) 150 mg PO DAILY supplement 04/17/24 potassium chloride 20 mEq tablet,extended release(part/cryst) 20 meq PO BID supplement 04/17/24 sennosides 8.6 mg tablet (Natural Senna Laxative) 8.6 mg PO DAILY stool softener 04/17/24 thiamine HCl (vitamin B1) 100 mg tablet (Vitamin B-1) 100 mg PO DAILY supplement 04/17/24 tizanidine 2 mg tablet 2 mg PO BID muscle spasms 04/17/24 levothyroxine 100 mcg tablet 200 mcg (2 x 100 mcg) PO DAILY@0600 thyroid #30 tabs 04/23/24 prednisone 20 mg tablet 40 mg (2 x 20 mg) PO BREAKFAST steroid 3 days #6 tabs 04/23/24 Hospital Course Operations None Procedures None Summary of Care Provided Minutes Spent on Discharge: 45 Hospital Course: Patient is a 78 year old male with a PMH as outlined including chronic respiratory failure on 4L of oxygen, and a known history of lung cancer who was admitted via the ED on 04/17/2024 with a complaint of shortness of breath and wheezing. Her symptoms had started about 5 hours prior to admission. She said her pulse ox was reading at 70% on room air. She also complained of generalised weakness. On admission CTA chest showed no evidence of PE and showed a 25mm right upper lobe pulmonary nodule concerning for primary lung malignancy and severe upper lobe predominant emphysema and multiple enlarged predominantly right sided hilar and mediastinal lymph nodes concerning for metastases in addition to hepatic cirrhosis. She was admitted to be managed for acute COPD exacerbation. She was started on IV solumedrol, and breathing treatment with bronchodilators. She was also placed on IV doxycycline and IV solumedrol. Her shortness of breath improved and she felt much better. Hospital course was complicated by abdominal pain which she thought twas due to possible bowel obstruction, as she had had same in the past. CT abdomen and pelvis with contrast showed no evidence of obstruction but showed constipation. She was therefore placed on laxatives and stool softeners which help with the constipation and abdominal pain resolved. Patient and family requested placement in SNF. She was discharged to SNF to 04/23/2024. She is to follow up with her PCP and oncologist within 1-2 weeks. Patient seen and examined prior to discharge. She still complained of mild nausea but felt well otherwise. Review of systems is otherwise negative. Labs and vitals reviewed. Home meds reviewed and reconciled. Physical Exam Const alert, oriented x3, no apparent distress and average body habitus Constitutional Narrative: class II obesity General Appearance: cooperative and comfortable Orientation / Consciousness: awake Exam Limitations: no limitations HEENT normocephalic, head/scalp atraumatic, hearing grossly normal bilaterally, moist oral mucous membranes and oropharynx normal Mouth: oral and palatal mucosa normal Eyes PERRL and EOMs intact bilaterally Neck no lymphadenopathy, supple and no JVD Lymph Lymphatic: no lymphadenopathy noted and no lymphedema noted Resp Resp Narrative: diminished breath sounds bibasally, no wheezes or crackles. On 4L of oxygen by nasal canula Cardio regular rate, regular rhythm, S1 normal heart sound, S2 normal heart sound and no murmurs GI normal to inspection, nondistended, normoactive bowel sounds, soft to palpation, non-tender and non-distended GI Narrative: stool in colostomy bag Extremity normal to inspection, full ROM, normal capillary refill, no clubbing, cyanosis or edema and no calf tenderness General Extremity: no tenderness to palpation of joints or extremities Skin Skin Narrative: Patient has no evidence of rash, abscess, wounds or jaundice. General Skin Exam: no breakdown Neuro oriented x3, CN's II-XII intact bilaterally, moves all extremities, no focal motor deficits and no sensory deficits noted Sensorium / Orientation: awake, alert, oriented to person, oriented to place and oriented to time Speech: speech normal Motor Exam: strength 5/5 throughout and general weakness Psych thought process normal, cooperative and affect normal Appearance: appropriate Weight / BMI Weight Weight: 196 lb 6.91 oz Body Mass Index (BMI) 33.5 ABG / Lab / Microbiology Data 04/23/24 05:49 04/23/24 05:49 Laboratory: Laboratory Results - last 24 hr 04/23/24 05:49: WBC 14.2 H, RBC 4.23, Hgb 13.4, Hct 40.7, MCV 96.2, MCH 31.7, MCHC 32.9, RDW Std Deviation 46.3 H, RDW Coeff of Ayad 13.0, Plt Count 205, MPV 10.0, Immature Gran % (Auto) 0.800, Neut % (Auto) 86.7 H, Lymph % (Auto) 6.1 L, [place] % (Auto) 6.2, Eos % (Auto) 0.1, Baso % (Auto) 0.1, Absolute Neuts (auto) 12.3 H, Absolute Lymphs (auto) 0.87, Nucleated RBC % 0, Sodium 136, Potassium 4.9, Chloride 97 L, Carbon Dioxide 31.3, Anion Gap 7, BUN 28 H, Creatinine 1.03, Estim Creat Clear Calc 47.95 L, Est GFR (MDRD) Non-Af 55 L, BUN/Creatinine Ratio 27.6 H, Glucose 100 H, Calcium 8.6 Microbiology: Microbiology 04/17/24 18:14 Mucosa - Nose SARS-CoV-2, Influenza & RSV (PCR) - Final D/C Instructions Discharge Diet: Low fat / Low cholesterol Discharge Activity: Return to Normal Activity Weight Bearing Status: Weight bearing as tolerated Call your doctor if you observe: Fever of 101 or Higher, Shortness of breath, Dizziness, Swelling in the ankles and Chest pain DC O2, CPAP, BIPAP Needs Home O2 Discharge instructions: Yes Type of respiratory needs?: Oxygen (4) Oxygen frequency: Continuous Continuous oxygen liters per minute: 4 DC home with Oxygen: Yes Home O2 MD Review: I have reviewed the oxygen testing, and the patient qualifies for home oxygen equipment and portability. The patient is mobile in the home and the community. Meaningful Use Info Meaningful Use Meaningful Use Diagnoses (Choose all that apply): None applicable Ischemic Stroke Statin Dosing Therapy Reference: STATIN DOSE THERAPY REFERENCE: * Patients > 75 years receive moderate or high dose statin therapy. * Patients 75 years or YOUNGER should receive HIGH intensity statin dose unless contraindicated. You will be required to document reason for non-treatment if statin daily dose does not meet guidelines. HIGH DOSE STATIN THERAPY DAILY Atorvastatin > than or = to 40 mg Rosuvastatin > than or = to 20 mg Amlodipine + Atorvastatin > than or = to 2.5/40 mg Ezetimibe + Simvastatin 10/80 mg Simvastatin 80mg Discharge Plan Admission Admit Date/Time: 04/17/24 22:41 Primary Reason for Your Visit: COPD exacerbation Attending Provider: Radha Nichols Primary Care Provider: Christine Figueredo Consulting Providers: Jairo Bai Instructions Patient Instructions: Discharge Instructions: COPD Discharge Orders/Prescriptions Prescriptions: New prednisone 20 mg Tablet 40 mg PO BREAKFAST 3 Days Qty: 6 0RF levothyroxine 100 mcg Tablet 200 mcg PO DAILY@0600 Qty: 30 2RF Continued albuterol sulfate 90 mcg/actuation HFA aerosol inhaler 2 puff INHALATION Q4H PRN PRN (Reason: sob) atorvastatin 10 mg tablet 10 mg PO DAILY furosemide 20 mg tablet 20 mg PO DAILY gabapentin 600 mg tablet 600 mg PO TID tizanidine 2 mg tablet 2 mg PO BID cetirizine 10 mg tablet 10 mg PO DAILY hydrocodone-acetaminophen 5-325 mg tablet 1 tab PO Q8H PRN PRN (Reason: pain) potassium chloride 20 mEq tablet,ER particles/crystals 20 meq PO BID paroxetine HCl 30 mg tablet 30 mg PO DAILY pantoprazole 40 mg tablet,delayed release (DR/EC) 40 mg PO DAILY Bevespi Aerosphere 9-4.8 mcg HFA aerosol inhaler 2 puff INHALATION BID sennosides [Natural Senna Laxative] 8.6 mg tablet 8.6 mg PO DAILY docusate sodium [Colace] 100 mg capsule 100 mg PO BID aspirin [Adult Aspirin Regimen] 81 mg tablet,delayed release (DR/EC) 81 mg PO DAILY cyanocobalamin (vitamin B-12) [B-12 DOTS] 500 mcg tablet 500 mcg PO QDAY thiamine HCl (vitamin B1) [Vitamin B-1] 100 mg tablet 100 mg PO DAILY calcium phos,dibas-vitamin D3 77-400 mg-unit tablet 1 tab PO DAILY polysaccharide iron complex [Ferrex 150] 150 mg iron capsule 150 mg PO DAILY Discontinued levothyroxine 125 mcg tablet 125 mcg PO DAILY Referrals / Follow Up: NOT,DEFINED [Non-Staff] - Christine Figueredo, RESPIRATORY THERAPY AIDE-C [Primary Care Provider] - Within 1 Week Disposition Disposition (needs filled in before D/C Order can be placed): [facility] Charges/Coding Visit Charges Inpatient E&M: 68684 Disch Hosp >30min
[2024-04-23] MEDS: Zinc Sulfate 50 mg zinc (220 mg) ORAL capsule PO (09:59)
--- NOTE | 2024-04-23 10:01 | PHA.DC.MR.R ---
Pharmacy [place] Med Reconciliation Pharmacy Service has performed discharge medication reconciliation for this patient. The patient's discharge medication list was reviewed for discrepancies and discrepancies were resolved. Medications at Discharge Home Medications albuterol sulfate 90 mcg/actuation aerosol inhaler 2 puff inhalation Q4H PRN PRN sob 04/17/24 aspirin 81 mg tablet,delayed release (Adult Aspirin Regimen) 81 mg PO DAILY 04/17/24 atorvastatin 10 mg tablet 10 mg PO DAILY 04/17/24 calcium phosphate,dibasic 77 mg-vitamin D3 400 unit tablet 1 tab PO DAILY 04/17/24 cetirizine 10 mg tablet 10 mg PO DAILY 04/17/24 cyanocobalamin (vitamin B-12) 500 mcg tablet (B-12 DOTS) 500 mcg PO QDAY 04/17/24 docusate sodium 100 mg capsule (Colace) 100 mg PO BID 04/17/24 furosemide 20 mg tablet 20 mg PO DAILY 04/17/24 gabapentin 600 mg tablet 600 mg PO TID 04/17/24 glycopyrrolate 9 mcg-formoterol 4.8 mcg HFA aerosol inhaler (Bevespi Aerosphere) 2 puff inhalation BID 04/17/24 hydrocodone-acetaminophen 5-325mg 5mg-325mg 1 tab PO Q8H PRN PRN pain 04/17/24 pantoprazole 40 mg tablet,delayed release 40 mg PO DAILY 04/17/24 paroxetine HCl 30 mg tablet 30 mg PO DAILY 04/17/24 polysaccharide iron complex 150 mg iron capsule (Ferrex) 150 mg PO DAILY 04/17/24 potassium chloride 20 mEq tablet,extended release(part/cryst) 20 meq PO BID 04/17/24 sennosides 8.6 mg tablet (Natural Senna Laxative) 8.6 mg PO DAILY 04/17/24 thiamine HCl (vitamin B1) 100 mg tablet (Vitamin B-1) 100 mg PO DAILY 04/17/24 tizanidine 2 mg tablet 2 mg PO BID 04/17/24 levothyroxine 100 mcg tablet 200 mcg (2 x 100 mcg) PO DAILY@0600 #30 tabs 04/23/24 prednisone 20 mg tablet 40 mg (2 x 20 mg) PO BREAKFAST 3 days #6 tabs 04/23/24
--- NOTE | 2024-04-23 11:46 | CASEMGMT ---
[facility] is able to accept pt today and per physician, pt is ready for dc today. DC orders faxed to TCU and Vesta in TCU notified of discharge. SW left VM with pt dgt notifiying of discharge to TCU. SW met with pt and pt is agreeable to dc plan. Nursing updated. Disposition: TCU, skilled level of care GEORGE Payton
[2024-04-23] MEDS: 0.9% Saline Lock 10 ML Syringe IV (12:20)
--- NOTE | 2024-04-23 16:03 | NURSING ---
All documentation by nursing home assistant Bella Montgomery reviewed by nursing clinical director Nani SCHULER, RN.
== END 2024-04-23 14:25 | disposition skilled nursing facility (03) | DRG 191 ==
LOC: ED 21:50 → MS3 22:54
PROVIDERS: Admitting Provider Internal Medicine; Emergency Provider Emergency Medicine; PCP Nurse Practitioner Family; Visit Provider Student in an Organized Health Care Education/Training Program
DX: J44.1 Chronic obstructive pulmonary disease with (acute) exacerbation (principal); C34.91 Malignant neoplasm of unspecified part of right bronchus or lung; E03.9 Hypothyroidism, unspecified; E66.812 Obesity, class 2; D72.829 Elevated white blood cell count, unspecified; K74.60 Unspecified cirrhosis of liver; K76.89 Other specified diseases of liver; J43.9 Emphysema, unspecified; Z93.3 Colostomy status; K75.81 Nonalcoholic steatohepatitis (NASH); F17.210 Nicotine dependence, cigarettes, uncomplicated; K76.0 Fatty (change of) liver, not elsewhere classified; K59.00 Constipation, unspecified; Z68.34 Body mass index [BMI] 34.0-34.9, adult; R26.89 Other abnormalities of gait and mobility; R53.1 Weakness; R79.89 Other specified abnormal findings of blood chemistry; R53.81 Other malaise; Z79.890 Hormone replacement therapy; R06.00 Dyspnea, unspecified; Z92.21 Personal history of antineoplastic chemotherapy; Z79.82 Long term (current) use of aspirin; Z79.899 Other long term (current) drug therapy; Z79.02 Long term (current) use of antithrombotics/antiplatelets; Z79.52 Long term (current) use of systemic steroids; R91.1 Solitary pulmonary nodule; R59.9 Enlarged lymph nodes, unspecified; R06.89 Other abnormalities of breathing; R09.02 Hypoxemia
CPT/HCPCS: 36415; 71275; 74177; 80048; 80053; 80076; 81001; 82607; 82746; 83735; 84100; 84439; 84443; 84481; 84484; 85025; 85379; 87631; 93005; 93970; 94640; 94668; 97116; 97162; 97166; 97530; 97535; 99285; 99406; Q9967; A4216; J2405